=== PATIENT | male | born 1945 | race Caucasian/White ===

== ENCOUNTER 2021-08-04 08:40 | Outpatient (REF) | payer MEDICARE, SELFPAY ==
--- NOTE | ~2021-08-04 | XR_ITS ---
EXAMINATION: XR RIBS, LEFT CLINICAL INFORMATION: Left rib pain COMPARISON: None TECHNIQUE: 3 views of the left ribs were obtained. One view chest. FINDINGS: Chest: The lungs are well-expanded and clear of acute pneumonic process. There is platelike atelectasis in the lingula. Heart size and pulmonary vascularity is normal. Multiple views of left ribs reveal no visible fracture or lytic process. XR/XR ribs LT min 3V w CXR1V IMPRESSION: Lingular atelectasis. No visible fracture or bony abnormality.
== END 2021-08-04 08:41 | disposition home or self-care (01) ==
LOC: HO.HMGCX 08:40
PROVIDERS: PCP Physician Assistant; Visit Provider Internal Medicine
DX: S20.212A Contusion of left front wall of thorax, initial encounter (principal)
CPT/HCPCS: 71101

== ENCOUNTER 2023-05-21 07:57 | Outpatient (AMB) | payer MEDICARE, SELFPAY ==
[2023-05-21 08:21] VITALS: BP 112/68; PULSE 74; O2SAT 98; BMI 27.2
--- NOTE | 2023-05-21 08:21 | MHC.PC.OV ---
Vital Signs 05/21/23 08:21 Height 5 ft 11 in Weight 195 lb BMI 27.2 BP 112/68 Blood Pressure Location Lt brachial Position Sitting Pulse 74 Pulse Source Pulse Oximeter Pulse Oximetry (%) 98 Oxygen Delivery Method Room Air Intake Visit Reasons: Dizzy, CT scan abnormalities Allergies lisinopril Adverse Reaction (Mild, Verified 05/21/23 08:34) Cough Medication List - Last Reconciled 05/21/23 by Tom Collins PA-C aspirin 81 mg PO DAILY clopidogrel 75 mg PO DAILY dapagliflozin propanediol (Farxiga) 10 mg PO DAILY 90 days diclofenac sodium 3% 1 appl topical BID 30 days glipizide 5 mg PO BID levothyroxine 75 mcg PO QAM losartan 25 mg PO DAILY metformin 1,000 mg PO BID metoprolol succinate ER 25 mg PO DAILY rosuvastatin 40 mg PO DAILY sildenafil (Viagra) 100 mg PO DAILY 5 days sitagliptin phosphate (Januvia) 100 mg PO DAILY Tobacco use date assessed: 02/28/23 Fall risk assessment: No Falls in past year Last assessed Fall Risk: 05/21/23 Dental Screening Dental Screen Date: 05/21/23 Did you have a dental visit in the last 12 months?: Yes Did you have a dental problem in the last 6 months where you did not have access to dental care?: No Was dental information given to patient?: Patient has dentist HPI Dizzy, CT scan abnormalities HPI Details Rich is a 77 y/o M here today for a follow-up visit. ? Pmhx significant for DMII, HTN, HLD, hypothyroid, CAD, h/o DVT, nephrolithiasis.' Patient recently seen at [facility] ER for chest pain and dizziness. Patient found to elevated heart rate and low blood pressure. Labs did show elevated serum creatinine and troponins which were trended though did not elevate to concerning level. CTA chest negative for pulmonary embolism though in the abdomen showing mediastinal lymph nodes that were nonspecific Indeterminate 1 cm hypodense lesion in the right lobe of the liver. CHRONIC MEDICAL CONDITIONS--> ? .. ? HTN:? Blood pressure acceptable today in office.? He denies any syncopal episodes or falls recently . Deneis any headaches , CP , SOB. ? . ? CAD:Is followed by Dr. Gallegos whom he seen couple times per year.? Has had cardiac catheterization in 2015 showing moderate stenosis of the coronary arteries though no stent placement.? He otherwise denies any chest pain, dizziness, shortness of breath on exertion.? Most recent lipid panel showing appropriate LDL at 60 ? .. ? DMII: Does not check his sugars at home. denies any hypergycemic symptoms.? Today's A1C 8.5 from 10.2. .? Fasting blood sugar have been better since starting Farxiga .? AGAIN STRONGLY ADVISED THE ADDITION OF INJECTABLE INSULIN THERAPY THOUGH PATIENT ADAMANTLY REFUSES.? HE WILL WORK ON LIFESTYLE TO REDUCE HIS CARBOHYDRATES. He reports he also will not check blood sugars at home as he does not like needles ?. [facility] Medical History (Updated 05/21/23 @ 08:35 by Tom Collins PA-C) H/O deep venous thrombosis Vertigo Surgical History History of cervical spinal surgery Family History Father No problems noted. Mother Heart disease Social History Housing: House Alcohol intake: never Patient Tobacco Use Status: Never used Tobacco e-Cigarette/Vaping Use: Never Used Second Hand Smoke Exposure: No service: No Current occupational status: employed Current occupational exposures/hazards: No Cognitive needs: No Hearing needs: No Vision needs: Yes Questionnaire PHQ-9 Over the last 2 weeks, how often have you been bothered by any of the following problems? 1. Little interest or pleasure in doing things: not at all 2. Feeling down, depressed, or hopeless: not at all 3. Trouble falling or staying asleep, or sleeping too much: not at all 4. Feeling tired or having little energy: not at all 5. Poor appetite or overeating: not at all 6. Feeling bad about yourself - or that you are a failure or have let yourself or your family down: not at all 7. Trouble concentrating on things, such as reading the newspaper or watching television: not at all 8. Moving or speaking so slowly that other people could have noticed. Or the opposite - being so fidgety or restless that you have been moving around a lot more than usual: not at all 9. Thoughts that you would be better off or of hurting yourself in some way: not at all Total score: 0 Depression Screening Interpretation: Negative 52923 - PHQ-9 Billing: Yes Source: Developed by Drs. Martín Iglesias, Court Page, Valeriano Amado and colleagues, with an educational niesha from [employer]. Thrive Questionnaire Date Thrive assessed: 02/28/23 AUDIT C Alcohol Use Questionnaire (AUDIT-C) 1. How often do you have a drink containing alcohol?: Never Total Score: 0 ABDOUL-7 AMB Questionnaire ABDOUL-7 Date ABDOUL - 7 assessed: 02/28/23 Source: Developed by Drs. Martín Iglesias, Valeriano Dunn and colleagues, with an educational niesha from [employer]. Review of Systems Const Denies headache(s) Eyes Denies loss of vision ENT Denies vertigo, Denies dizziness, Denies headache(s) and Denies sore throat Card Denies chest pain, Denies leg edema and Denies lightheadedness Resp Denies cough, Denies hemoptysis and Denies wheezing GI Denies abdominal pain, Denies melena, Denies constipation, Denies diarrhea and Denies vomiting Denies dysuria, Denies urinary frequency and Denies urinary urgency Musc Denies arthralgias, Denies joint swelling, Denies numbness and Denies tingling Neuro Denies Abnormal speech present, Denies behavioral changes, Denies vertigo, Denies dizziness, Denies headache(s), Denies loss of vision, Denies memory loss, Denies numbness and Denies tingling Psych Denies anxiety, Denies behavioral changes, Denies depression, Denies memory loss and Denies panic attacks Mahesh/Lymph Denies easy bleeding and Denies easy bruising Aller/Immun Denies wheezing Physical exam (Primary Care) Vital Signs: Last Vital Signs Pulse 74 05/21/23 08:21 BP 112/68 05/21/23 08:21 Pulse Ox 98 05/21/23 08:21 Oxygen Delivery Method Room Air 05/21/23 08:21 BMI result Body Mass Index 27.2 Tobacco/Smoking Status: Tobacco use Status Tobacco use date assessed 02/28/23 05/21/23 08:22 Patient Tobacco Use Status Never used Tobacco 05/21/23 08:22 e-Cigarette/Vaping Use Never Used 05/21/23 08:22 PHQ-9: PHQ-9 Score PHQ-9: Total score 0 05/21/23 08:30 Depression Screening Interpretation: Negative Thrive Assessment: Date of Thrive Assessment Date Thrive assessed 02/28/23 05/21/23 08:22 Const General: healthy appearing, no acute distress, alert and awake Nutritional Appearance: well nourished Orientation/consciousness: oriented to person, oriented to place and oriented to time HENMT Ears: TM's normal bilaterally General nose exam: Normal nasal mucous membranes and turbinates present Eyes Conjunctivae: conjunctivae normal Sclerae: sclerae normal Pupils: Equal, round and reactive pupils present Neck Neck: Yes no lymphadenopathy and Yes no JVD Thyroid: Thyroid normal Carotids: no bruits Resp Effort & Inspection: normal respiratory effort and not tachypneic Auscultation: no crackles, no rales, no rhonchi and no wheezes Cardio Rate: regular rate Rhythm: regular rhythm Heart sounds: no murmurs and normal S1 and S2 GI Palpation (GI): Soft to palpation, nontender, no hepatomegaly and no splenomegaly Auscultation: normal bowel sounds Skin General skin exam: no rashes or lesions noted and dry skin Neuro General: oriented to person, oriented to place and oriented to time Cranial nerves: Yes Equal, round and reactive pupils present Speech: No Abnormal speech present Gait exam (Neuro): Normal gait present Motor exam (neuro): no tremor noted Extrem Right upper extremity: full ROM Left upper extremity: full ROM Right lower extremity: full ROM; no edema Left lower extremity: full ROM; no edema Psych Mental Status: mental status grossly normal Speech and movement: Normal speech and movement present Affect: normal affect Attitude: cooperative Thought process: Normal thought process present Results AMB Hemoglobin A1c AMB Hemoglobin A1c 8.5 % Last Edit by Preet Moss CMA on 05/21/23 08:44 Results Reviewed Results Reviewed: Laboratory Last Values Hgb A1c (Clinic) 8.5 % (4.0-6.0) H 05/21/23 08:22 Assessment and Plan Assessment & Plan (1) Liver lesion: Code(s): K76.9 - Liver disease, unspecified Plan: Noted incidental 1 cm liver lesion on CTA chest. We discussed further imaging the patient like to hold off on this for now. Considered ultrasound though again decline. (2) DMII (diabetes mellitus, type 2): Code(s): E11.9 - Type 2 diabetes mellitus without complications Qualifiers: Diabetes mellitus complication status: without complication Diabetes mellitus school clerk insulin use: without school clerk use Qualified Code(s): E11.9 - Type 2 diabetes mellitus without complications Plan: Type 2 diabetes suboptimally controlled today's A1c at 8.5. Patient again declines starting insulin therapy. Continues on p.o. Jardiance and Januvia Orders: Orders AMB Hemoglobin A1c 05/21/23 Z13.9 - Encounter for screening, unspecified Coding Level of Care Code Est Pt Level 3 (93630) Diagnoses Liver lesion K76.9 DMII (diabetes mellitus, type 2) E11.9 Diabetes mellitus complication status: without complication Diabetes mellitus half-way insulin use: without half-way use
== END 2023-05-21 08:59 | disposition home or self-care (01) ==
PROVIDERS: PCP Physician Assistant; Visit Provider Physician Assistant
DX: E11.9 Type 2 diabetes mellitus without complications (principal)
CPT/HCPCS: 83036; 99213

== ENCOUNTER 2023-09-12 08:57 | Outpatient (AMB) | payer MEDICARE, SELFPAY ==
[2023-09-12 09:49] VITALS: BP 102/60; PULSE 75; O2SAT 95; BMI 26.5
--- NOTE | 2023-09-12 09:49 | MHC.PC.OV ---
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 Accompanied by: Spouse Allergies lisinopril Adverse Reaction (Mild, Verified 09/12/23 10:06) Cough Medication List - Last Reconciled 09/12/23 by Tom Collins PA-C aspirin 81 mg PO DAILY clopidogrel 75 mg PO DAILY dapagliflozin propanediol (Farxiga) 10 mg PO DAILY 90 days diclofenac sodium 3% 1 appl topical BID 30 days glipizide 5 mg PO BID levothyroxine 75 mcg PO QAM losartan 25 mg PO DAILY metformin 1,000 mg PO BID metoprolol succinate ER 25 mg PO DAILY miscellaneous medical supply 1 ea miscellaneous DAILY 99 days rosuvastatin 40 mg PO DAILY sildenafil (Viagra) 100 mg PO DAILY 5 days sitagliptin phosphate (Januvia) 100 mg PO DAILY Tobacco use date assessed: 02/28/23 Fall risk assessment: No Falls in past year Last assessed Fall Risk: 09/12/23 Dental Screening Dental Screen Date: 09/12/23 Did you have a dental visit in the last 12 months?: No Did you have a dental problem in the last 6 months where you did not have access to dental care?: No Was dental information given to patient?: Patient has dentist HPI f/u DMII/ CAD / HTN HPI Details Rich is a 77 y/o M here today for a follow-up visit. ? Pmhx significant for DMII, HTN, HLD, hypothyroid, CAD, h/o DVT, nephrolithiasis.' CHRONIC MEDICAL CONDITIONS--> ? .. ? HTN:? Blood pressure acceptable today in office.? He denies any syncopal episodes or falls recently . Deneis any headaches , CP , SOB. ? . ? CAD:Is followed by Dr. Gallegos whom he seen couple times per year.? Has had cardiac catheterization in 2014 showing moderate stenosis of the coronary arteries though no stent placement.? He otherwise denies any chest pain, dizziness, shortness of breath on exertion.? Most recent lipid panel showing appropriate LDL at 60. Has upcoming order for an echocardiogram to be done in November2023 ? .. ? DMII: Does not check his sugars at home. denies any hypergycemic symptoms.? Most recent A1c at 8.6. Has been losing weight to which he attributes to his poor eating habits. .? Fasting blood sugar have been better since starting Farxiga .? AGAIN STRONGLY ADVISED THE ADDITION OF INJECTABLE INSULIN THERAPY THOUGH PATIENT ADAMANTLY REFUSES.? HE WILL WORK ON LIFESTYLE TO REDUCE HIS CARBOHYDRATES. He reports he also will not check blood sugars at home as he does not like needles ?. Liver lesion: Was found to have an Indeterminate 1 cm hypodense lesion in the right lobe of the liver- CT or MRI with and without contrast was recommended. UNFORTUNATELY PATIENT DECLINES FURTHER IMAGING [facility] Medical History Vertigo H/O deep venous thrombosis Surgical History History of cervical spinal surgery Family History Father No problems noted. Mother Heart disease Social History Housing: House Alcohol intake: never Patient Tobacco Use Status: Never used Tobacco e-Cigarette/Vaping Use: Never Used Second Hand Smoke Exposure: No service: No Current occupational status: employed Current occupational exposures/hazards: No Cognitive needs: No Hearing needs: No Vision needs: Yes Questionnaire Thrive Questionnaire Date Thrive assessed: 02/28/23 ABDOUL-7 AMB Questionnaire ABDOUL-7 Date ABDOUL - 7 assessed: 02/28/23 Source: Developed by Drs. Martín Iglesias, Court Page, Valeriano Amado and colleagues, with an educational niesha from [employer]. Review of Systems Const Denies headache(s) Eyes Denies loss of vision ENT Denies vertigo, Denies dizziness, Denies headache(s) and Denies sore throat Card Denies chest pain, Denies leg edema and Denies lightheadedness Resp Denies cough, Denies hemoptysis and Denies wheezing GI Denies abdominal pain, Denies melena, Denies constipation, Denies diarrhea and Denies vomiting Denies dysuria, Denies urinary frequency and Denies urinary urgency Musc Denies arthralgias, Denies joint swelling, Denies numbness and Denies tingling Neuro Denies Abnormal speech present, Denies behavioral changes, Denies vertigo, Denies dizziness, Denies headache(s), Denies loss of vision, Denies memory loss, Denies numbness and Denies tingling Psych Denies anxiety, Denies behavioral changes, Denies depression, Denies memory loss and Denies panic attacks Mahesh/Lymph Denies easy bleeding and Denies easy bruising Aller/Immun Denies wheezing Physical exam (Primary Care) Vital Signs: Last Vital Signs Pulse 75 09/12/23 09:49 BP 102/60 09/12/23 09:49 Pulse Ox 95 09/12/23 09:49 Oxygen Delivery Method Room Air 09/12/23 09:49 BMI result Body Mass Index 26.5 Tobacco/Smoking Status: Tobacco use Status Tobacco use date assessed 02/28/23 09/12/23 09:49 Patient Tobacco Use Status Never used Tobacco 09/12/23 09:49 e-Cigarette/Vaping Use Never Used 09/12/23 09:49 Thrive Assessment: Date of Thrive Assessment Date Thrive assessed 02/28/23 09/12/23 09:49 Const General: healthy appearing, no acute distress, alert and awake Nutritional Appearance: well nourished Orientation/consciousness: oriented to person, oriented to place and oriented to time HENMT Ears: TM's normal bilaterally General nose exam: Normal nasal mucous membranes and turbinates present Eyes Conjunctivae: conjunctivae normal Sclerae: sclerae normal Pupils: Equal, round and reactive pupils present Neck Neck: Yes no lymphadenopathy and Yes no JVD Thyroid: Thyroid normal Carotids: no bruits Resp Effort & Inspection: normal respiratory effort and not tachypneic Auscultation: no crackles, no rales, no rhonchi and no wheezes Cardio Rate: regular rate Rhythm: regular rhythm Heart sounds: no murmurs and normal S1 and S2 GI Palpation (GI): Soft to palpation, nontender, no hepatomegaly and no splenomegaly Auscultation: normal bowel sounds Skin General skin exam: no rashes or lesions noted and dry skin Neuro General: oriented to person, oriented to place and oriented to time Cranial nerves: Yes Equal, round and reactive pupils present Speech: No Abnormal speech present Gait exam (Neuro): Normal gait present Motor exam (neuro): no tremor noted Extrem Right upper extremity: full ROM Left upper extremity: full ROM Right lower extremity: full ROM; no edema Left lower extremity: full ROM; no edema Psych Mental Status: mental status grossly normal Speech and movement: Normal speech and movement present Affect: normal affect Attitude: cooperative Thought process: Normal thought process present Assessment and Plan Assessment & Plan (1) CAD (coronary artery disease): Comment: Had coronary catheterization showing 80% blockage of the LAD no intervention at the time Code(s): I25.10 - Atherosclerotic heart disease of [place] coronary artery without angina pectoris Qualifiers: Associated angina: without angina Coronary Disease-Associated Artery/Lesion type: [place] artery [place] vs. 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 Most recent lipid panel showing appropriate LDL at 60. He otherwise denies any chest discomfort, shortness of breath on exertion or dizziness. (2) DMII (diabetes mellitus, type 2): Code(s): E11.9 - Type 2 diabetes mellitus without complications Qualifiers: Diabetes mellitus complication status: without complication Diabetes mellitus helicopter crew chief insulin use: without helicopter crew chief use Qualified Code(s): E11.9 - Type 2 diabetes mellitus without complications Plan: Patient type 2 diabetes suboptimally controlled. Most recent A1c AT 8.6. AGAIN ADVISED ON STARTING INSULIN AND OR NEW WERE ONCE A WEEK INJECTABLE THERAPIES FOR DIABETES THE PATIENT IS NOT A FOUND OF NEEDLES. Currently on maximal dose of metformin and Januvia. Will work on diabetic diet Goal A1c to be below 7.0 (3) HTN (hypertension): Code(s): I10 - Essential (primary) hypertension Qualifiers: Hypertension type: essential hypertension Qualified Code(s): I10 - Essential (primary) hypertension Plan: Patient's blood pressure has been well maintained with current antihypertensive medication.. Goal blood pressure be below 140/90 (4) Hypothyroidism: Code(s): E03.9 - Hypothyroidism, unspecified Qualifiers: Hypothyroidism type: unspecified Qualified Code(s): E03.9 - Hypothyroidism, unspecified Plan: Patient's most recent TSH stable. Has been chemically and clinically euthyroid. Will continue TSH monitoring Will continue levothyroxine 75 mcg (5) Liver lesion: Code(s): K76.9 - Liver disease, unspecified Plan: AGAIN NOTED TO HAVE A 1 CM HYPODENSE LESION ON THE RIGHT LOBE OF LIVER. OFFERED ADDITIONAL IMAGING OF THE LIVER THOUGH PATIENT DECLINES. - OF NOTE HAS BEEN LOSING WEIGHT Orders: Orders Comprehensive [place]. Panel Fast Today E11.9 - Type 2 diabetes mellitus without complications Microalbumin, Random (w Creat) Today I10 - Essential (primary) hypertension Complete Blood Count no Diff Today I10 - Essential (primary) hypertension Lipid Panel Today I25.10 - Atherosclerotic heart disease of [place] coronary artery without angina pectoris TSH reflex Free T4 Today E03.9 - Hypothyroidism, unspecified Medications: Refilled miscellaneous medical supply 1 ea miscellaneous DAILY 99 days 2 ea 0RF E11.9 - Type 2 diabetes mellitus without complications Coding Level of Care Code Est Pt Level 4 (33841) Diagnoses Coronary artery disease involving [place] coronary artery of [place] heart without angina pectoris I25.10 Associated angina: without angina Coronary Disease-Associated Artery/Lesion type: [place] artery [place] vs. transplanted heart: [place] heart Type 2 diabetes mellitus without complication, without long-term current use of insulin E11.9 Diabetes mellitus complication status: without complication Diabetes mellitus helicopter crew chief insulin use: without custodial use Essential hypertension I10 Hypertension type: essential hypertension Hypothyroidism, unspecified type E03.9 Hypothyroidism type: unspecified Liver lesion K76.9
== END 2023-09-12 10:26 | disposition home or self-care (01) ==
PROVIDERS: PCP Physician Assistant; Visit Provider Physician Assistant
DX: I25.10 Atherosclerotic heart disease of native coronary artery without angina pectoris (principal); E11.9 Type 2 diabetes mellitus without complications; I10 Essential (primary) hypertension; E03.9 Hypothyroidism, unspecified; K76.9 Liver disease, unspecified
CPT/HCPCS: 99214

== ENCOUNTER 2023-10-15 14:39 | Outpatient (AMB) | payer MEDICARE, SELFPAY ==
[2023-10-15 15:28] VITALS: BP 148/68; PULSE 72; O2SAT 97; BMI 26.4
--- NOTE | 2023-10-15 15:28 | MHC.PC.OV ---
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 Accompanied by: Spouse Allergies lisinopril Adverse Reaction (Mild, Verified 10/15/23 15:44) Cough Medication List - Last Reconciled 10/15/23 by Tom Collins PA-C amlodipine 5 mg PO DAILY aspirin 81 mg PO DAILY clopidogrel 75 mg PO DAILY diclofenac sodium 3% 1 appl topical BID 30 days glipizide 2.5 mg PO ONCE levothyroxine 75 mcg PO QAM losartan 25 mg PO DAILY metoprolol succinate ER 25 mg PO DAILY miscellaneous medical supply 1 ea miscellaneous DAILY 99 days rosuvastatin 40 mg PO DAILY sevelamer carbonate 1,600 mg PO TID sildenafil (Viagra) 100 mg PO DAILY 5 days sitagliptin phosphate (Januvia) 25 mg PO DAILY sitagliptin phosphate (Januvia) 25 mg PO DAILY sodium zirconium cyclosilicate (Lokelma) 10 grams PO DAILY Tobacco use date assessed: 10/15/23 Fall risk assessment: No Falls in past year Last assessed Fall Risk: 10/15/23 Dental Screening Dental Screen Date: 10/15/23 Did you have a dental visit in the last 12 months?: Yes Did you have a dental problem in the last 6 months where you did not have access to dental care?: No Was dental information given to patient?: Patient has dentist HPI [facility] [place] 09/24-10/05 gallbladder surgery HPI Details Rich is a 77 y/o M here today for a follow-up visit. ? Pmhx significant for DMII, HTN, HLD, hypothyroid, CAD, h/o DVT, nephrolithiasis.' Recently seen at [facility] for acute cholecystitis and underwent a laparoscopic cholecystectomy. His clinical course complicated by acute kidney injury with a creatinine at 10. His metformin was discontinued. Amlodipine was started for blood pressure. Renal biopsies were recommended though patient declined. Patient refused for further follow-up and hospital and wanted to be checked as outpatient for his kidney function. He is now followed by Dr. Baez (nephrology) every few days trending his electrolytes and renal function. Recommendations have been made for short-term dialysis though patient again declines. CHRONIC MEDICAL CONDITIONS--> ? .. ? HTN:? Blood pressure today in office elevated.? He denies any syncopal episodes or falls recently . Deneis any headaches , CP , SOB. ? . ? CAD:Is followed by Dr. Gallegos whom he seen couple times per year.? Has had cardiac catheterization in 2014 showing moderate stenosis of the coronary arteries though no stent placement.? He otherwise denies any chest pain, dizziness, shortness of breath on exertion.? Most recent lipid panel showing appropriate LDL at 60. Has upcoming order for an echocardiogram to be done in November2023 ? .. ? DMII: Does not check his sugars at home. denies any hypergycemic symptoms.? Most recent A1c at 8.6. Has been losing weight to which he attributes to his poor eating habits. .? Fasting blood sugar have been better since starting Farxiga .? AGAIN STRONGLY ADVISED THE ADDITION OF INJECTABLE INSULIN THERAPY THOUGH PATIENT ADAMANTLY REFUSES.? HE WILL WORK ON LIFESTYLE TO REDUCE HIS CARBOHYDRATES. He reports he also will not check blood sugars at home as he does not like needles ?. [facility] Medical History Vertigo H/O deep venous thrombosis Surgical History History of cervical spinal surgery Family History Father No problems noted. Mother Heart disease Social History Housing: House Alcohol intake: never Patient Tobacco Use Status: Never used Tobacco e-Cigarette/Vaping Use: Never Used Second Hand Smoke Exposure: No service: No Current occupational status: employed Current occupational exposures/hazards: No Cognitive needs: No Hearing needs: No Vision needs: Yes Questionnaire PHQ-9 Over the last 2 weeks, how often have you been bothered by any of the following problems? 68884 - PHQ-9 Billing: Patient declined-do not bill Source: Developed by Drs. Martín Court Valladares Kurt Kroenke and colleagues, with an educational niesha from [employer]. Thrive Questionnaire Date Thrive assessed: 10/15/23 I am a: Patient What is your living situation today?: I have a steady place to live Within the past 12 months, did the food you bought not last and you didn't have the money to get more?: Never true Within the past 12 months, did you worry whether your food would run out before you got money to buy more?: Never true Do you have trouble paying for medicines?: No Do you have trouble getting transportation to medical appointments?: No Do you have trouble paying your heating and electricity bill?: No Do you have trouble taking care of your child, family member or friend?: No Do you have trouble with day-to-day activities such as bathing, preparing meals, shopping, managing finances, etc.?: No Are you currently unemployed and looking for a job?: No Are you interested in more education?: No Please select the resources that you would like help with: None Currently or been in a relationship where the following occur: no concerns reported AUDIT C Alcohol Use Questionnaire (AUDIT-C) 1. How often do you have a drink containing alcohol?: Never 3. How often do you have six or more drinks on one occasion?: Never Total Score: 0 ABDOUL-7 AMB Questionnaire ABDOUL-7 Date ABDOUL - 7 assessed: 02/28/23 Source: Developed by Drs. Martín Iglesias, Valeriano Dunn and colleagues, with an educational niesha from [employer]. ABDOUL-7 Assessment Billing ABDOUL-7 Assessment Tool: pt declined-do not bill Review of Systems Const Denies headache(s) Eyes Denies loss of vision ENT Denies vertigo, Denies dizziness, Denies headache(s) and Denies sore throat Card Denies chest pain, Denies leg edema and Denies lightheadedness Resp Denies cough, Denies hemoptysis and Denies wheezing GI Denies abdominal pain, Denies melena, Denies constipation, Denies diarrhea and Denies vomiting Denies dysuria, Denies urinary frequency and Denies urinary urgency Musc Denies arthralgias, Denies joint swelling, Denies numbness and Denies tingling Neuro Denies Abnormal speech present, Denies behavioral changes, Denies vertigo, Denies dizziness, Denies headache(s), Denies loss of vision, Denies memory loss, Denies numbness and Denies tingling Psych Denies anxiety, Denies behavioral changes, Denies depression, Denies memory loss and Denies panic attacks Mahesh/Lymph Denies easy bleeding and Denies easy bruising Aller/Immun Denies wheezing Physical exam (Primary Care) Vital Signs: Last Vital Signs Pulse 72 10/15/23 15:28 BP 148/68 H 10/15/23 15:28 Pulse Ox 97 10/15/23 15:28 Oxygen Delivery Method Room Air 10/15/23 15:28 BMI result Body Mass Index 26.4 Tobacco/Smoking Status: Tobacco use Status Tobacco use date assessed 10/15/23 10/15/23 15:38 Patient Tobacco Use Status Never used Tobacco 10/15/23 15:28 e-Cigarette/Vaping Use Never Used 10/15/23 15:28 Thrive Assessment: Date of Thrive Assessment Date Thrive assessed 10/15/23 10/15/23 15:42 Currently or been in a relationship where the following occur: no concerns reported Const General: healthy appearing, no acute distress, alert and awake Nutritional Appearance: well nourished Orientation/consciousness: oriented to person, oriented to place and oriented to time HENMT Ears: TM's normal bilaterally General nose exam: Normal nasal mucous membranes and turbinates present Eyes Conjunctivae: conjunctivae normal Sclerae: sclerae normal Pupils: Equal, round and reactive pupils present Neck Neck: Yes no lymphadenopathy and Yes no JVD Thyroid: Thyroid normal Carotids: no bruits Resp Effort & Inspection: normal respiratory effort and not tachypneic Auscultation: no crackles, no rales, no rhonchi and no wheezes Cardio Rate: regular rate Rhythm: regular rhythm Heart sounds: no murmurs and normal S1 and S2 GI Palpation (GI): Soft to palpation, nontender, no hepatomegaly and no splenomegaly Auscultation: normal bowel sounds Skin Other: RASH NOTED OVER ENTIRE BACK. General skin exam: dry skin Neuro General: oriented to person, oriented to place and oriented to time Cranial nerves: Yes Equal, round and reactive pupils present Speech: No Abnormal speech present Gait exam (Neuro): Normal gait present Motor exam (neuro): no tremor noted Extrem Right upper extremity: full ROM Left upper extremity: full ROM Right lower extremity: full ROM; no edema Left lower extremity: full ROM; no edema Psych Mental Status: mental status grossly normal Speech and movement: Normal speech and movement present Affect: normal affect Attitude: cooperative Thought process: Normal thought process present Assessment and Plan Assessment & Plan (1) SEBASTIÁN (acute kidney injury): Code(s): N17.9 - Acute kidney failure, unspecified Plan: Recent hospitalization for acute cholecystitis and now status post cholecystectomy. Was found to have an acute kidney injury with creatinine up to 10.. Patient now followed by Nephrology and is closely monitored as outpatient. He has developed a generalized itch ? Due to renal disease verses allergic reaction to new medication. Will supply with low-dose hydroxyzine 10 mg (2) S/P cholecystectomy: Code(s): Z90.49 - Acquired absence of other specified parts of digestive tract Plan: Doing well from a surgical., Surgical scars were well healed. (3) DMII (diabetes mellitus, type 2): Code(s): E11.9 - Type 2 diabetes mellitus without complications Qualifiers: Diabetes mellitus complication status: without complication Diabetes mellitus watermaster insulin use: without snf use Qualified Code(s): E11.9 - Type 2 diabetes mellitus without complications Plan: Patient's diabetes has been suboptimally controlled. He continues to decline offer start insulin. Was on insulin while in the hospital. Metformin has been discontinued due to his renal issues. Now on glipizide, Jardiance (4) HTN (hypertension): Code(s): I10 - Essential (primary) hypertension Qualifiers: Hypertension type: essential hypertension Qualified Code(s): I10 - Essential (primary) hypertension Plan: Patient's blood pressure slightly elevated today in office. Will increase his dose of amlodipine to 10 mg for better blood pressure control. Advised to continue monitoring blood pressure at home with goal blood pressure to be below 140/90 Medications: New hydroxyzine HCl 10 mg PO TID 15 days 45 tabs 0RF L29.9 - Pruritus, unspecified sodium zirconium cyclosilicate (Lokelma) 10 grams PO DAILY 30 days 30 ea 0RF N17.9 - Acute kidney failure, unspecified triamcinolone acetonide 0.1% 1 appl topical DAILY 14 days 454 grams 1RF L29.9 - Pruritus, unspecified amlodipine 10 mg PO DAILY 30 days 30 tabs 1RF I10 - Essential (primary) hypertension sitagliptin phosphate (Januvia) 25 mg PO DAILY 30 days 30 tabs 3RF E11.9 - Type 2 diabetes mellitus without complications Changed From glipizide 5 mg PO BID 180 tabs 1RF E11.9 - Type 2 diabetes mellitus without complications To glipizide 2.5 mg PO ONCE E11.9 - Type 2 diabetes mellitus without complications Coding Level of Care Code Est Pt Level 4 (01830) Diagnoses SEBASTIÁN (acute kidney injury) N17.9 S/P cholecystectomy Z90.49 Type 2 diabetes mellitus without complication, without long-term current use of insulin E11.9 Diabetes mellitus complication status: without complication Diabetes mellitus snf insulin use: without snf use Essential hypertension I10 Hypertension type: essential hypertension
== END 2023-10-15 16:07 | disposition home or self-care (01) ==
PROVIDERS: PCP Physician Assistant; Visit Provider Physician Assistant
DX: N17.9 Acute kidney failure, unspecified (principal); Z90.49 Acquired absence of other specified parts of digestive tract; E11.9 Type 2 diabetes mellitus without complications; I10 Essential (primary) hypertension
CPT/HCPCS: 99214

== ENCOUNTER 2023-11-13 08:42 | Outpatient (AMB) | payer MEDICARE, SELFPAY ==
[2023-11-13 09:10] VITALS: BP 128/68; PULSE 76; O2SAT 98; BMI 24.6
--- NOTE | 2023-11-13 09:10 | A.OFFPC_ITS ---
Vital Signs 11/13/23 09:10 Height 5 ft 11 in Weight 176 lb 4 oz BMI 24.6 BP 128/68 Blood Pressure Location Lt brachial Position Sitting Pulse 76 Pulse Source Pulse Oximeter Pulse Oximetry (%) 98 Oxygen Delivery Method Room Air Intake Visit Reasons: f/u SEBASTIÁN [employer] Required: No Accompanied by: Spouse Allergies lisinopril Adverse Reaction (Mild, Verified 11/13/23 09:21) Cough Medication List - Last Reconciled 11/13/23 by Tom Collins PA-C amlodipine 10 mg PO DAILY 30 days aspirin 81 mg PO DAILY clopidogrel 75 mg PO DAILY diclofenac sodium 3% 1 appl topical BID 30 days glipizide 2.5 mg PO ONCE hydroxyzine HCl 10 mg PO TID 15 days levothyroxine 75 mcg PO QAM losartan 25 mg PO DAILY metoprolol succinate ER 25 mg PO DAILY miscellaneous medical supply 1 ea miscellaneous DAILY 99 days rosuvastatin 40 mg PO DAILY sevelamer carbonate 1,600 mg PO TID sildenafil (Viagra) 100 mg PO DAILY 5 days sitagliptin phosphate (Januvia) 25 mg PO DAILY 30 days sodium zirconium cyclosilicate (Lokelma) 10 grams PO DAILY 30 days triamcinolone acetonide 0.1% 1 appl topical DAILY 14 days Tobacco use date assessed: 10/15/23 Dental Screening Dental Screen Date: 11/13/23 Did you have a dental visit in the last 12 months?: No Did you have a dental problem in the last 6 months where you did not have access to dental care?: No Was dental information given to patient?: Patient has dentist HPI f/u SEBASTIÁN HPI Details Rich is a 77 y/o M here today for a follow-up visit. ? Pmhx significant for DMII, HTN, HLD, hypothyroid, CAD, h/o DVT, nephrolithiasis.' Recently seen at [facility] for acute cholecystitis and underwent a laparoscopic cholecystectomy. His clinical course complicated by acute kidney injury with a creatinine at 10. His metformin was discontinued. Amlodipine was started for blood pressure. Renal biopsies were recommended though patient declined. Patient refused for further follow-up and hospital and wanted to be checked as outpatient for his kidney function. He is now followed by Dr. Baez (nephrology) every few days trending his electrolytes and renal function. Recommendations have been made for short-term dialysis though patient again declines. Has since his hospital admission been having intermittent dizziness, low appetite in somewhat fatigued. Unclear etiology to this though may be due to his renal disease and uncontrolled diabetes. Has lost significant amount of weight over the last 2 months. Does appear to have some muscle wasting in his extremities. Has labs at [facility] and report creatinine is now down to 3.9. Has close follow-up with Nephrology. CHRONIC MEDICAL CONDITIONS--> ? .. ? HTN:? Blood pressure today in office elevated.? He denies any syncopal episodes or falls recently . Deneis any headaches , CP , SOB. ? . ? CAD:Is followed by Dr. Gallegos whom he seen couple times per year.? Has had cardiac catheterization in 2015 showing moderate stenosis of the coronary arteries though no stent placement.? He otherwise denies any chest pain, dizziness, shortness of breath on exertion.? Most recent lipid panel showing appropriate LDL at 60. Did have an echocardiogram done at [facility] though did not have results of this. ? .. ? DMII: Does not check his sugars at home. denies any hypergycemic symptoms.? Today's A1c at 8.3. Has been losing weight to which he attributes to his poor eating habits. . .? AGAIN STRONGLY ADVISED THE ADDITION OF INJECTABLE INSULIN THERAPY THOUGH PATIENT ADAMANTLY REFUSES.? HE WILL WORK ON LIFESTYLE TO REDUCE HIS CARBOHYDRATES. He reports he also will not check blood sugars at home as he does not like needles ? PLAN: Will restart Farxiga 10 mg, continue glipizide 2.5 mg and Jardiance 25 mg. [facility] Medical History Vertigo H/O deep venous thrombosis Surgical History History of cervical spinal surgery Family History Father No problems noted. Mother Heart disease Social History Housing: House Alcohol intake: never Patient Tobacco Use Status: Never used Tobacco e-Cigarette/Vaping Use: Never Used Second Hand Smoke Exposure: No service: No Current occupational status: employed Current occupational exposures/hazards: No Cognitive needs: No Hearing needs: No Vision needs: Yes Questionnaire PHQ-9 Over the last 2 weeks, how often have you been bothered by any of the following problems? 1. Little interest or pleasure in doing things: several days 2. Feeling down, depressed, or hopeless: more than half the days 3. Trouble falling or staying asleep, or sleeping too much: nearly every day 4. Feeling tired or having little energy: nearly every day 5. Poor appetite or overeating: more than half the days 6. Feeling bad about yourself - or that you are a failure or have let yourself or your family down: more than half the days 7. Trouble concentrating on things, such as reading the newspaper or watching television: more than half the days 8. Moving or speaking so slowly that other people could have noticed. Or the opposite - being so fidgety or restless that you have been moving around a lot more than usual: not at all 9. Thoughts that you would be better off or of hurting yourself in some way: not at all Total score: 15 Depression Screening Interpretation: Positive Depression Screening Follow-up: Existing condition and Declines treatment Depression Screening Done: Yes 99419 - PHQ-9 Billing: Yes Source: Developed by Drs. Martín Iglesias, Court Page, Valeriano Amado and colleagues, with an educational niesha from [employer]. Thrive Questionnaire Date Thrive assessed: 10/15/23 AUDIT C Alcohol Use Questionnaire (AUDIT-C) 1. How often do you have a drink containing alcohol?: Never 3. How often do you have six or more drinks on one occasion?: Never Total Score: 0 ABDOUL-7 AMB Questionnaire ABDOUL-7 Date ABDOUL - 7 assessed: 02/28/23 Feeling nervous, anxious, or on edge: 0 = Not at all Not being able to stop or control worryin = Not at all Worrying too much about different things: 0 = Not at all Trouble relaxin = Not at all Being so restless that it is hard to sit still: 0 = Not at all Becoming easily annoyed or irritable: 0 = Not at all Feeling afraid as if something awful might happen: 0 = Not at all Total ABDOUL-7 score (0-4 normal; 5-9 mild; 10-14 moderate; 15-21 severe): 0 Source: Developed by Drs. Martín Iglesias, Court Page, Valeriano Amado and colleagues, with an educational niesha from [employer]. ABDOUL-7 Assessment Billing ABDOUL-7 Assessment Tool: ABDOUL-7 Assessment 17110 Review of Systems Const Details: + weight loss Denies headache(s) Eyes Denies loss of vision ENT Denies vertigo, Reports dizziness, Denies headache(s) and Denies sore throat Card Denies chest pain, Denies leg edema and Reports lightheadedness Resp Denies cough, Denies hemoptysis and Denies wheezing GI Denies abdominal pain, Denies melena, Denies constipation, Denies diarrhea and Denies vomiting Denies dysuria, Denies urinary frequency and Denies urinary urgency Musc Denies arthralgias, Denies joint swelling, Denies numbness and Denies tingling Neuro Denies Abnormal speech present, Denies behavioral changes, Denies vertigo, Reports dizziness, Denies headache(s), Denies loss of vision, Denies memory loss, Denies numbness and Denies tingling Psych Denies anxiety, Denies behavioral changes, Denies depression, Denies memory loss and Denies panic attacks Mahesh/Lymph Denies easy bleeding and Denies easy bruising Aller/Immun Denies wheezing Physical exam (Primary Care) Vital Signs: Last Vital Signs Pulse 76 11/13/23 09:10 BP 128/68 11/13/23 09:10 Pulse Ox 98 11/13/23 09:10 Oxygen Delivery Method Room Air 11/13/23 09:10 BMI result Body Mass Index 24.6 Tobacco/Smoking Status: Tobacco use Status Tobacco use date assessed 10/15/23 11/13/23 09:10 Patient Tobacco Use Status Never used Tobacco 11/13/23 09:10 e-Cigarette/Vaping Use Never Used 11/13/23 09:10 PHQ-9: PHQ-9 Score PHQ-9: Total score 15 11/13/23 09:29 Depression Screening Interpretation: Positive Depression Screening Follow-up: Existing condition and Declines treatment Thrive Assessment: Date of Thrive Assessment Date Thrive assessed 10/15/23 11/13/23 09:10 Const General: healthy appearing, no acute distress, alert and awake Nutritional Appearance: well nourished Orientation/consciousness: oriented to person, oriented to place and oriented to time HENMT Ears: TM's normal bilaterally General nose exam: Normal nasal mucous membranes and turbinates present Eyes Conjunctivae: conjunctivae normal Sclerae: sclerae normal Pupils: Equal, round and reactive pupils present Neck Neck: Yes no lymphadenopathy and Yes no JVD Thyroid: Thyroid normal Carotids: no bruits Resp Effort & Inspection: normal respiratory effort and not tachypneic Auscultation: no crackles, no rales, no rhonchi and no wheezes Cardio Rate: regular rate Rhythm: regular rhythm Heart sounds: no murmurs and normal S1 and S2 GI Palpation (GI): Soft to palpation, nontender, no hepatomegaly and no splenom egaly Auscultation: normal bowel sounds Skin General skin exam: no rashes or lesions noted and dry skin Neuro General: oriented to person, oriented to place and oriented to time Cranial nerves: Yes Equal, round and reactive pupils present Speech: No Abnormal speech present Gait exam (Neuro): Normal gait present Motor exam (neuro): no tremor noted Extrem Right upper extremity: full ROM Left upper extremity: full ROM Right lower extremity: full ROM; no edema Left lower extremity: full ROM; no edema Psych Mental Status: mental status grossly normal Speech and movement: Normal speech and movement present Affect: normal affect Attitude: cooperative Thought process: Normal thought process present Results AMB Hemoglobin A1c AMB Hemoglobin A1c 8.4 % Last Edit by RAMOS Scherer on 11/13/23 09:29 Results Reviewed Results Reviewed: Laboratory Last Values Hgb A1c (Clinic) 8.4 % (4.0-6.0) H 11/13/23 09:11 Assessment and Plan Assessment & Plan (1) SEBASTIÁN (acute kidney injury): Code(s): N17.9 - Acute kidney failure, unspecified Plan: Recent hospitalization for acute cholecystitis and now status post cholecystectomy. Was found to have an acute kidney injury with creatinine up to 10.. Patient now followed by Nephrology and is closely monitored as outpatient. Did have repeat labs and creatinine down at 3.9. GFR at 15 (2) S/P cholecystectomy: Code(s): Z90.49 - Acquired absence of other specified parts of digestive tract Plan: Doing well from a surgical., did have an ERCP recently that removed his stones. (3) DMII (diabetes mellitus, type 2): Code(s): E11.9 - Type 2 diabetes mellitus without complications Qualifiers: Diabetes mellitus complication status: without complication Diabetes mellitus retirement insulin use: without retirement use Qualified Code(s): E11.9 - Type 2 diabetes mellitus without complications Plan: Patient's diabetes has been suboptimally controlled. Today's A1c at 8.4. Has been noticing weight loss, muscle weakness and intermittent dizziness most likely secondary to uncontrolled diabetes and his recent renal disease. Advised to stay well hydrated He continues to decline offer start insulin as I continued to report he will likely benefit him on controlling his diabetes. Was on insulin while in the hospital -CONTINUES TO REFUSE INSULIN. Metformin has been discontinued due to his renal issues. Will restart Januvia 25 mg and Farxiga 10 mg. Will continue glipizide 2.5 mg. Goal A1c is to be below 7.0 (4) HTN (hypertension): Code(s): I10 - Essential (primary) hypertension Qualifiers: Hypertension type: essential hypertension Qualified Code(s): I10 - Essential (primary) hypertension Plan: Patient's blood pressure stable today in office. Continues on amlodipine 10 mg. Advised to continue monitoring blood pressure at home with goal blood pressure to be below 140/90 Orders: Orders Complete Blood Count no Diff Today E11.9 - Type 2 diabetes mellitus without complications Phosphorus Today N17.9 - Acute kidney failure, unspecified AMB Hemoglobin A1c Today E11.9 - Type 2 diabetes mellitus without complications Basic Metabolic Panel Today E11.9 - Type 2 diabetes mellitus without complications Medications: New dapagliflozin propanediol (Farxiga) 10 mg PO DAILY 90 days 90 tabs 1RF E11.9 - Type 2 diabetes mellitus without complications glipizide 2.5 mg PO DAILY 90 days 90 tabs 1RF I10 - Essential (primary) hypertension Changed From amlodipine 10 mg PO DAILY 30 days 30 tabs 1RF I10 - Essential (primary) hypertension To amlodipine 10 mg PO DAILY 90 days 90 tabs 1RF I10 - Essential (primary) hy pertension Discontinued hydroxyzine HCl Discontinued Reason: Doctor's Order 10 mg PO TID 15 days 45 tabs 0RF L29.9 - Pruritus, unspecified Coding Level of Care Code Est Pt Level 4 (63611) Diagnoses SEBASTIÁN (acute kidney injury) N17.9 S/P cholecystectomy Z90.49 Type 2 diabetes mellitus without complication, without long-term current use of insulin E11.9 Diabetes mellitus complication status: without complication 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
== END 2023-11-13 09:59 | disposition home or self-care (01) ==
PROVIDERS: PCP Physician Assistant; Visit Provider Physician Assistant
DX: N17.9 Acute kidney failure, unspecified (principal); Z90.49 Acquired absence of other specified parts of digestive tract; E11.9 Type 2 diabetes mellitus without complications; I10 Essential (primary) hypertension
CPT/HCPCS: 83036; 99214

== ENCOUNTER 2023-11-25 13:30 | Outpatient (AMB) | payer MEDICARE, SELFPAY ==
--- NOTE | 2023-11-25 14:24 | MHC.OFFWIV ---
Intake Vital Signs 11/25/23 14:25 Height 5 ft 11 in Weight 175 lb 4 oz BMI 24.4 BP 104/62 Blood Pressure Location Lt brachial Position Sitting Pulse 76 Pulse Source Pulse Oximeter Pulse Oximetry (%) 99 Oxygen Delivery Method Room Air Intake Visit Reasons: EST/dizziness X3 weeks(lobby) Intake Note: Pt is here c/o dizziness for more than three weeks. Pt states he had dizzy spells since he had his gallbladder removed. Patient Tobacco Use Status: Never used Tobacco Allergies lisinopril Adverse Reaction (Mild, Verified 11/25/23 15:01) Cough Medication List - Last Reconciled 11/25/23 by Pedro Ellison MD amlodipine 10 mg PO DAILY 90 days aspirin 81 mg PO DAILY clopidogrel 75 mg PO DAILY dapagliflozin propanediol (Farxiga) 10 mg PO DAILY 90 days diclofenac sodium 3% 1 appl topical BID 30 days glipizide 2.5 mg PO DAILY 90 days levothyroxine 75 mcg PO QAM losartan 25 mg PO DAILY metoprolol succinate ER 25 mg PO DAILY miscellaneous medical supply 1 ea miscellaneous DAILY 99 days rosuvastatin 40 mg PO DAILY sevelamer carbonate 1,600 mg PO TID sildenafil (Viagra) 100 mg PO DAILY 5 days sitagliptin phosphate (Januvia) 25 mg PO DAILY 30 days triamcinolone acetonide 0.1% 1 appl topical DAILY 14 days HPI EST/dizziness X3 weeks(lobby) HPI Details 78-year-old male presents to the office for a sick visit. Patient is complaining of dizziness for the past few weeks. Symptoms are present every day with no specific aggravating or relieving factors. No history of fall. Patient is able to drive. He is able to do his activities of daily living. Patient had an admission to the hospital in September. He was diagnosed with sepsis and later the gallbladder was removed. He still has a stent near the gallbladder in place. He also suffered from kidney injury and his last creatinine is at 3.0. He is not on dialysis. Patient also has elevated blood sugars. His last A1c is greater than 8. Patient refuses to check his blood sugars at home. [facility] Medical History Vertigo H/O deep venous thrombosis Surgical History History of cervical spinal surgery Family History Father No problems noted. Mother Heart disease Social History Housing: House Alcohol intake: never Patient Tobacco Use Status: Never used Tobacco e-Cigarette/Vaping Use: Never Used Second Hand Smoke Exposure: No service: No Current occupational status: employed Current occupational exposures/hazards: No Cognitive needs: No Hearing needs: No Vision needs: Yes Physical Exam Vital Signs: Last Vital Signs Pulse 76 11/25/23 14:25 BP 104/62 11/25/23 14:25 Pulse Ox 99 11/25/23 14:25 Oxygen Delivery Method Room Air 11/25/23 14:25 BMI result Body Mass Index 24.4 Const General: cooperative and healthy appearing Nutritional Appearance: well nourished Orientation/consciousness: patient oriented x3 Limitations: no limitations HEENT Head: Yes normal to inspection Eyes General: appearance normal, both eyes and all related structures Neck Neck: Yes normal visual inspection Chest Chest palpation & inspection: normal palpation of entire chest wall Resp Effort & Inspection: normal respiratory effort Neuro Other: No resting tremors. Gait is normal. General: patient oriented x3 Results AMB Random Glucose (hemocue) AMB Random Glucose (hemocue) 261 mg/dL Last Edit by Preet Moss CMA on 11/25/23 15:09 Assessment & Plan Assessment & Plan (1) Dizziness: Code(s): R42 - Dizziness and giddiness Plan: Blood sugar done in the office today was 260 . EKG and records reviewed. The lab work from [facility] was reviewed. Causes of dizziness could be his elevated sugar, renal dysfunction or positional vertigo. Patient has lab work orders and he prefers to go to [facility] lab. Meclizine has been added to the regimen. If symptoms do not improve to follow-up here. 20 minutes was spent reviewing his lab work. Orders: Orders AMB Random Glucose (hemocue) Today Z13.9 - Encounter for screening, unspecified Coding Level of Care Code Est Pt Level 4 (67185) Diagnoses Dizziness R42
[2023-11-25 14:25] VITALS: BP 104/62; PULSE 76; O2SAT 99; BMI 24.4
== END 2023-11-25 15:14 | disposition home or self-care (01) ==
PROVIDERS: PCP Physician Assistant; Visit Provider Internal Medicine
DX: R42 Dizziness and giddiness (principal)
CPT/HCPCS: 82948; 99214

== ENCOUNTER 2023-12-26 08:35 | Outpatient (AMB) | payer MEDICARE, SELFPAY ==
[2023-12-26 08:44] VITALS: BP 110/70; PULSE 66; O2SAT 96; BMI 24.3
--- NOTE | 2023-12-26 08:44 | MHC.PC.OV ---
Vital Signs 12/26/23 08:44 Height 5 ft 11 in Weight 174 lb BMI 24.3 BP 110/70 Blood Pressure Location Lt brachial Position Sitting Pulse 66 Pulse Source Pulse Oximeter Pulse Oximetry (%) 96 Oxygen Delivery Method Room Air Intake Visit Reasons: 4 wk f/u Salt Manager Required: No Toll Test Worker: Not Required per policy Accompanied by: Self / Same As Patient Allergies lisinopril Adverse Reaction (Mild, Verified 12/26/23 09:18) Cough Medication List - Last Reconciled 12/26/23 by Tom Collins PA-C amlodipine 10 mg PO DAILY 90 days aspirin 81 mg PO DAILY clopidogrel 75 mg PO DAILY dapagliflozin propanediol (Farxiga) 10 mg PO DAILY 90 days glipizide 5 mg PO DAILY 30 days levothyroxine 75 mcg PO QAM losartan 25 mg PO DAILY metformin 500 mg PO BID 30 days metoprolol succinate ER 25 mg PO DAILY miscellaneous medical supply 1 ea miscellaneous DAILY 99 days rosuvastatin 40 mg PO DAILY sevelamer carbonate 1,600 mg PO TID sildenafil (Viagra) 100 mg PO DAILY 5 days sitagliptin phosphate (Januvia) 25 mg PO DAILY 30 days Tobacco use date assessed: 10/15/23 Fall risk assessment: No Falls in past year Last assessed Fall Risk: 12/26/23 Dental Screening Dental Screen Date: 12/26/23 Did you have a dental visit in the last 12 months?: Yes Did you have a dental problem in the last 6 months where you did not have access to dental care?: No Was dental information given to patient?: Patient has dentist HPI 4 wk f/u HPI Details Rich is a 78 y/o M here today for a follow-up visit. ? Pmhx significant for DMII, HTN, HLD, hypothyroid, CAD, h/o DVT, nephrolithiasis.' Diabetes: Still interested in starting insulin. Most recent A1c at 8.4. We have restarted metformin and Jardiance. He has been a bit less dizzy and less abdominal pain. .. Renal impairment: Most recent labs showing improved renal function ( 2.6 from 3.0) and stable electrolytes. Again has been feeling less dizzy and has been able to eat a bit better. CHRONIC MEDICAL CONDITIONS--> ? .. ? HTN:? Blood pressure today in office stable.? Losartan has been discontinued while in the hospital. He continues on amlodipine which has helped to manage his blood pressure better. He denies any syncopal episodes or falls recently . Deneis any headaches , CP , SOB. ? . ? CAD:Is followed by Dr. Gallegos whom he seen couple times per year.? Has had cardiac catheterization in 2015 showing moderate stenosis of the coronary arteries though no stent placement.? He otherwise denies any chest pain, dizziness, shortness of breath on exertion.? Most recent lipid panel showing appropriate LDL at 60. Did have an echocardiogram done at [facility] though did not have results of this. ? .. ? DMII: Does not check his sugars at home. denies any hypergycemic symptoms.? Today's A1c at 8.3. Has been losing weight to which he attributes to his poor eating habits. . .? AGAIN STRONGLY ADVISED THE ADDITION OF INJECTABLE INSULIN THERAPY THOUGH PATIENT ADAMANTLY REFUSES.? HE WILL WORK ON LIFESTYLE TO REDUCE HIS CARBOHYDRATES. He reports he also will not check blood sugars at home as he does not like needles ? PLAN: Will increase his Jardiance to 50 mg, will continue glipizide, metformin and Farxiga. [facility] Medical History Vertigo H/O deep venous thrombosis Surgical History History of cervical spinal surgery Family History Father No problems noted. Mother Heart disease Social History Housing: House Alcohol intake: never Patient Tobacco Use Status: Never used Tobacco e-Cigarette/Vaping Use: Never Used Second Hand Smoke Exposure: No service: No Current occupational status: employed Current occupational exposures/hazards: No Cognitive needs: No Hearing needs: No Vision needs: Yes (glasses) Questionnaire Thrive Questionnaire Date Thrive assessed: 10/15/23 ABDOUL-7 AMB Questionnaire ABDOUL-7 Date ABDOUL - 7 assessed: 02/28/23 Source: Developed by Drs. Martín Iglesias, Court Page, Valeriano Amado and colleagues, with an educational niesha from [employer]. Review of Systems Const Denies headache(s) Eyes Denies loss of vision ENT Denies vertigo, Denies dizziness, Denies headache(s) and Denies sore throat Card Denies chest pain, Denies leg edema and Denies lightheadedness Resp Denies cough, Denies hemoptysis and Denies wheezing GI Denies abdominal pain, Denies melena, Denies constipation, Denies diarrhea and Denies vomiting Denies dysuria, Denies urinary frequency and Denies urinary urgency Musc Denies arthralgias, Denies joint swelling, Denies numbness and Denies tingling Neuro Denies Abnormal speech present, Denies behavioral changes, Denies vertigo, Denies dizziness, Denies headache(s), Denies loss of vision, Denies memory loss, Denies numbness and Denies tingling Psych Denies anxiety, Denies behavioral changes, Denies depression, Denies memory loss and Denies panic attacks Mahesh/Lymph Denies easy bleeding and Denies easy bruising Aller/Immun Denies wheezing Physical exam (Primary Care) Vital Signs: Last Vital Signs Pulse 66 12/26/23 08:44 BP 110/70 12/26/23 08:44 Pulse Ox 96 12/26/23 08:44 Oxygen Delivery Method Room Air 12/26/23 08:44 BMI result Body Mass Index 24.3 Tobacco/Smoking Status: Tobacco use Status Tobacco use date assessed 10/15/23 12/26/23 08:45 Patient Tobacco Use Status Never used Tobacco 12/26/23 08:45 e-Cigarette/Vaping Use Never Used 12/26/23 08:45 Thrive Assessment: Date of Thrive Assessment Date Thrive assessed 10/15/23 12/26/23 08:45 Const General: healthy appearing, no acute distress, alert and awake Nutritional Appearance: well nourished Orientation/consciousness: oriented to person, oriented to place and oriented to time HENMT Ears: TM's normal bilaterally General nose exam: Normal nasal mucous membranes and turbinates present Eyes Conjunctivae: conjunctivae normal Sclerae: sclerae normal Pupils: Equal, round and reactive pupils present Neck Neck: Yes no lymphadenopathy and Yes no JVD Thyroid: Thyroid normal Carotids: no bruits Resp Effort & Inspection: normal respiratory effort and not tachypneic Auscultation: no crackles, no rales, no rhonchi and no wheezes Cardio Rate: regular rate Rhythm: regular rhythm Heart sounds: no murmurs and normal S1 and S2 GI Palpation (GI): Soft to palpation, nontender, no hepatomegaly and no splenomegaly Auscultation: normal bowel sounds Skin General skin exam: no rashes or lesions noted and dry skin Neuro General: oriented to person, oriented to place and oriented to time Cranial nerves: Yes Equal, round and reactive pupils present Speech: No Abnormal speech present Gait exam (Neuro): Normal gait present Motor exam (neuro): no tremor noted Extrem Right upper extremity: full ROM Left upper extremity: full ROM Right lower extremity: full ROM; no edema Left lower extremity: full ROM; no edema Psych Mental Status: mental status grossly normal Speech and movement: Normal speech and movement present Affect: normal affect Attitude: cooperative Thought process: Normal thought process present Assessment and Plan Assessment & Plan (1) DMII (diabetes mellitus, type 2): Code(s): E11.9 - Type 2 diabetes mellitus without complications Qualifiers: Diabetes mellitus complication status: without complication Diabetes mellitus chcf insulin use: without chcf use Qualified Code(s): E11.9 - Type 2 diabetes mellitus without complications Plan: Patient's diabetes has been suboptimally controlled. Most recent A1c at 8.4 Has been noticing weight loss, muscle weakness and intermittent dizziness most likely secondary to uncontrolled diabetes and his recent renal disease. Advised to stay well hydrated He continues to decline offer start insulin as I continued to report he will likely benefit him on controlling his diabetes. Was on insulin while in the hospital -CONTINUES TO REFUSE INSULIN. He has restarted metformin. Will increase his Januvia to 50 mg Will continue Farxiga 10. Will continue glipizide 2.5 mg. Goal A1c is to be below 7.0 (2) SEBASTIÁN (acute kidney injury): Code(s): N17.9 - Acute kidney failure, unspecified Plan: Recent hospitalization for acute cholecystitis and now status post cholecystectomy. Was found to have an acute kidney injury with creatinine up to 10.. Patient now followed by Nephrology and is closely monitored as outpatient. Did have repeat labs and creatinine down at 2.3. (3) HTN (hypertension): Code(s): I10 - Essential (primary) hypertension Qualifiers: Hypertension type: essential hypertension Qualified Code(s): I10 - Essential (primary) hypertension Plan: Patient's blood pressure stable today in office. Continues on amlodipine 10 mg. Losartan has visit discontinued in the setting of renal disease. Advised to continue monitoring blood pressure at home with goal blood pressure to be below 140/90 Orders: Orders Hemoglobin A1c Today E11.9 - Type 2 diabetes mellitus without complications Comprehensive Met. Panel Today I10 - Essential (primary) hypertension TSH reflex Free T4 Today E03.9 - Hypothyroidism, unspecified Prostate Specific Antigen Scr Today I10 - Essential (primary) hypertension, Z12.5 - Encounter for screening for malignant neoplasm of prostate Medications: New sitagliptin phosphate (Januvia) 50 mg PO DAILY 90 days 90 tabs 1RF E11.9 - Type 2 diabetes mellitus without complications Changed From metformin 500 mg PO BID 30 days 60 tabs 3RF E11.9 - Type 2 diabetes mellitus without complications To metformin 500 mg PO BID 90 days 180 tabs 1RF E11.9 - Type 2 diabetes mellitus without complications From glipizide 5 mg PO DAILY 30 days 30 tabs 1RF E11.9 - Type 2 diabetes mellitus without complications To glipizide 5 mg PO DAILY 90 days 90 tabs 1RF E11.9 - Type 2 diabetes mellitus without complications Refilled metoprolol succinate ER 25 mg PO DAILY 90 tabs 1RF E03.9 - Hypothyroidism, unspecified Discontinued losartan Discontinued Reason: Doctor's Order 25 mg PO DAILY 90 tabs 3RF sildenafil (Viagra) Discontinued Reason: Doctor's Order 100 mg PO DAILY 5 days 5 tabs 0RF sexual activity E11.9 - Type 2 diabetes mellitus without complications sitagliptin phosphate (Januvia) Discontinued Reason: Doctor's Order 25 mg PO DAILY 30 days 30 tabs 3RF E11.9 - Type 2 diabetes mellitus without complications Coding Level of Care Code Est Pt Level 4 (04332) Diagnoses Type 2 diabetes mellitus without complication, without long-term current use of insulin E11.9 Diabetes mellitus complication status: without complication Diabetes mellitus online user experience strategist insulin use: without chcf use SEBASTIÁN (acute kidney injury) N17.9 Essential hypertension I10 Hypertension type: essential hypertension
== END 2023-12-26 09:34 | disposition home or self-care (01) ==
PROVIDERS: PCP Physician Assistant; Visit Provider Physician Assistant
DX: E11.9 Type 2 diabetes mellitus without complications (principal); N17.9 Acute kidney failure, unspecified; I10 Essential (primary) hypertension
CPT/HCPCS: 99214

== ENCOUNTER 2024-04-13 10:33 | Outpatient (AMB) | payer MEDICARE, SELFPAY ==
[2024-04-13 11:01] VITALS: BP 94/60; PULSE 77; O2SAT 97; BMI 25.9
--- NOTE | 2024-04-13 11:01 | A.OFFPC_ITS ---
Vital Signs 04/13/24 11:01 Height 5 ft 11 in Weight 185 lb 6 oz BMI 25.9 BP 94/60 Blood Pressure Location Lt brachial Position Sitting Pulse 77 Pulse Source Pulse Oximeter Pulse Oximetry (%) 97 Oxygen Delivery Method Room Air Intake Visit Reasons: 6mth f/u Order Builder Loader Required: No Accompanied by: Spouse Allergies lisinopril Adverse Reaction (Mild, Verified 04/13/24 11:14) Cough Medication List - Last Reviewed 04/13/24 by RAMOS Scherer amlodipine 10 mg PO DAILY 90 days aspirin 81 mg PO DAILY clopidogrel 75 mg PO DAILY dapagliflozin propanediol (Farxiga) 10 mg PO DAILY 90 days glipizide 5 mg PO DAILY 90 days levothyroxine 75 mcg PO QAM metformin 500 mg PO BID 90 days metoprolol succinate ER 25 mg PO DAILY miscellaneous medical supply 1 ea miscellaneous DAILY 99 days rosuvastatin 40 mg PO DAILY sitagliptin phosphate (Januvia) 50 mg PO DAILY 90 days Tobacco use date assessed: 10/15/23 Dental Screening Dental Screen Date: 12/26/23 HPI 6mth f/u HPI Details Rich is a 78 y/o M here today for a follow-up visit. ? Pmhx significant for DMII, HTN, HLD, hypothyroid, CAD, h/o DVT, nephrolithiasis.' .. Renal impairment: Most recent labs showing improved renal function ( 2.6 from 3.0) and stable electrolytes. Again has been feeling less dizzy and has been able to eat a bit better. CHRONIC MEDICAL CONDITIONS--> ? .. ? HTN:? Blood pressure today in office stable slightly low, has been having some episodes dizziness. Blood pressure is reported as slightly low at home as well. Will decrease his dose of amlodipine to 5 mg. ? . ? CAD:Is followed by Dr. Gallegos whom he seen couple times per year.? Has had cardiac catheterization in 2014 showing moderate stenosis of the coronary arteries though no stent placement.? He otherwise denies any chest pain, dizziness, shortness of breath on exertion.? Most recent lipid panel showing appropriate LDL at 60. His Plavix has been discontinued. Did have an echocardiogram done at [facility] though did not have results of this. ? .. ? DMII: Does not check his sugars at home. denies any hypergycemic symptoms.? Today's A1c at 8.1 from 8.4. Has been losing weight to which he attributes to his poor eating habits. . .? AGAIN STRONGLY ADVISED THE ADDITION OF INJECTABLE INSULIN THERAPY THOUGH PATIENT ADAMANTLY REFUSES.? HE WILL WORK ON LIFESTYLE TO REDUCE HIS CARBOHYDRATES. He reports he also will not check blood sugars at home as he does not like needles ? PLAN: He will continue on current doses oral antihyperglycemic medication [facility] Medical History Vertigo H/O deep venous thrombosis Surgical History History of cervical spinal surgery Family History Father No problems noted. Mother Heart disease Social History Housing: House Alcohol intake: never Patient Tobacco Use Status: Never used Tobacco e-Cigarette/Vaping Use: Never Used Second Hand Smoke Exposure: No service: No Current occupational status: employed Current occupational exposures/hazards: No Cognitive needs: No Hearing needs: No Vision needs: Yes (glasses) Questionnaire Thrive Questionnaire Date Thrive assessed: 10/15/23 ABDOUL-7 AMB Questionnaire ABDOUL-7 Date ABDOUL - 7 assessed: 02/28/23 Source: Developed by Drs. Martín Iglesias, Court Page, Valeriano Amado and colleagues, with an educational niesha from [employer]. Review of Systems Const Denies headache(s) Eyes Denies loss of vision ENT Denies vertigo, Denies dizziness, Denies headache(s) and Denies sore throat Card Denies chest pain, Denies leg edema and Denies lightheadedness Resp Denies cough, Denies hemoptysis and Denies wheezing GI Denies abdominal pain, Denies melena, Denies constipation, Denies diarrhea and Denies vomiting Denies dysuria, Denies urinary frequency and Denies urinary urgency Musc Denies arthralgias, Denies joint swelling, Denies numbness and Denies tingling Neuro Denies Abnormal speech present, Denies behavioral changes, Denies vertigo, Denies dizziness, Denies headache(s), Denies loss of vision, Denies memory loss, Denies numbness and Denies tingling Psych Denies anxiety, Denies behavioral changes, Denies depression, Denies memory loss and Denies panic attacks Mahesh/Lymph Denies easy bleeding and Denies easy bruising Aller/Immun Denies wheezing Physical exam (Primary Care) Vital Signs: Last Vital Signs Pulse 77 04/13/24 11:01 BP 94/60 04/13/24 11:01 Pulse Ox 97 04/13/24 11:01 Oxygen Delivery Method Room Air 04/13/24 11:01 BMI result Body Mass Index 25.9 Tobacco/Smoking Status: Tobacco use Status Tobacco use date assessed 10/15/23 04/13/24 11:03 Patient Tobacco Use Status Never used Tobacco 04/13/24 11:03 e-Cigarette/Vaping Use Never Used 04/13/24 11:03 Thrive Assessment: Date of Thrive Assessment Date Thrive assessed 10/15/23 04/13/24 11:03 Const General: healthy appearing, no acute distress, alert and awake Nutritional Appearance: well nourished Orientation/consciousness: oriented to person, oriented to place and oriented to time HENMT Ears: TM's normal bilaterally General nose exam: Normal nasal mucous membranes and turbinates present Eyes Conjunctivae: conjunctivae normal Sclerae: sclerae normal Pupils: Equal, round and reactive pupils present Neck Neck: Yes no lymphadenopathy and Yes no JVD Thyroid: Thyroid normal Carotids: no bruits Resp Effort & Inspection: normal respiratory effort and not tachypneic Auscultation: no crackles, no rales, no rhonchi and no wheezes Cardio Rate: regular rate Rhythm: regular rhythm Heart sounds: no murmurs and normal S1 and S2 GI Palpation (GI): Soft to palpation, nontender, no hepatomegaly and no splenomegal y Auscultation: normal bowel sounds Skin General skin exam: no rashes or lesions noted and dry skin Neuro General: oriented to person, oriented to place and oriented to time Cranial nerves: Yes Equal, round and reactive pupils present Speech: No Abnormal speech present Gait exam (Neuro): Normal gait present Motor exam (neuro): no tremor noted Extrem Right upper extremity: full ROM Left upper extremity: full ROM Right lower extremity: full ROM; no edema Left lower extremity: full ROM; no edema Psych Mental Status: mental status grossly normal Speech and movement: Normal speech and movement present Affect: normal affect Attitude: cooperative Thought process: Normal thought process present Results AMB Hemoglobin A1c AMB Hemoglobin A1c 8.1 % Last Edit by RAMOS Scherer on 04/13/24 11:14 Results Reviewed Results Reviewed: Laboratory Last Values Hgb A1c (Clinic) 8.1 % (4.0-6.0) H 04/13/24 11:13 Assessment and Plan Assessment & Plan (1) DMII (diabetes mellitus, type 2): Code(s): E11.9 - Type 2 diabetes mellitus without complications Qualifiers: Diabetes mellitus shear helper insulin use: without [place] [facility] use Diabetes mellitus complication status: without complication Qualified Code(s): E11.9 - Type 2 diabetes mellitus without complications Plan: Patient's diabetes has been suboptimally controlled. A1c has improved at 8.1 from 8.4. Has been noticing weight loss, muscle weakness and intermittent dizziness most likely secondary to uncontrolled diabetes and his recent renal disease. Advised to stay well hydrated He continues to decline offer start insulin as I continued to report he will likely benefit him on controlling his diabetes. Was on insulin while in the hospital -CONTINUES TO REFUSE INSULIN. He continues on metformin, Januvia, Farxiga and glipizide. Goal A1c is to be below 7.0 (2) HTN (hypertension): Code(s): I10 - Essential (primary) hypertension Qualifiers: Hypertension type: essential hypertension Qualified Code(s): I10 - Essential (primary) hypertension Plan: Blood pressure on the low side today in office. Has been a bit low at home. Will decrease his amlodipine to 5 mg. Advised to continue monitoring blood pressure at home with goal blood pressure t o be below 140/90 (3) CAD (coronary artery disease): Comment: Had coronary catheterization showing 80% blockage of the LAD no intervention at the time Code(s): I25.10 - Atherosclerotic heart disease of [place] coronary artery without angina pectoris Qualifiers: Coronary Disease-Associated Artery/Lesion type: [place] artery [place] vs. 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 Most recent lipid panel showing appropriate LDL at 60. He otherwise denies any chest discomfort, shortness of breath on exertion or dizziness. (4) Hypothyroidism: Code(s): E03.9 - Hypothyroidism, unspecified Qualifiers: Hypothyroidism type: unspecified Qualified Code(s): E03.9 - Hypothyroidism, unspecified Plan: Patient's most recent TSH stable. Has been chemically and clinically euthyroid. Will continue TSH monitoring Will continue levothyroxine 75 mcg Orders: Orders AMB Hemoglobin A1c Today E11.9 - Type 2 diabetes mellitus without complications Lipid Panel Today I25.10 - Atherosclerotic heart disease of [place] coronary artery without angina pectoris Comprehensive [place]. Panel Fast Today E11.9 - Type 2 diabetes mellitus without complications Prostate Specific Antigen Scr Today E03.9 - Hypothyroidism, unspecified, Z12.5 - Encounter for screening for malignant neoplasm of prostate Complete Blood Count no Diff Today E11.9 - Type 2 diabetes mellitus without complications TSH reflex Free T4 Today E03.9 - Hypothyroidism, unspecified Medications: New amlodipine 5 mg PO DAILY 90 days 90 tabs 2RF I10 - Essential (primary) hypertension Discontinued clopidogrel Discontinued Reason: Doctor's Order 75 mg PO DAILY 90 tabs 1RF amlodipine Discontinued Reason: Doctor's Order 10 mg PO DAILY 90 days 90 tabs 1RF I10 - Essential (primary) hypertension Patient Instructions: Goal: A1c to be below 7.0, LDL to be optimally below 70 Barriers: Adherence to physical activity and healthy eating habits Coding Level of Care Code Est Pt Level 4 (39533) Complex EM visit Add On [id number] Diagnoses Type 2 diabetes mellitus without complication, without long-term current use of insulin E11.9 Diabetes mellitus shear helper insulin use: without [place] [facility] use Diabetes mellitus complication status: without complication Essential hypertension I10 Hypertension type: essential hypertension Coronary artery disease involving [place] coronary artery of [place] heart without angina pectoris I25.10 Coronary Disease-Associated Artery/Lesion type: [place] artery [place] vs. transplanted heart: [place] heart Associated angina: without angina Hypothyroidism, unspecified type E03.9 Hypothyroidism type: unspecified
== END 2024-04-13 11:30 | disposition home or self-care (01) ==
PROVIDERS: PCP Physician Assistant; Visit Provider Physician Assistant
DX: E11.9 Type 2 diabetes mellitus without complications (principal); I10 Essential (primary) hypertension; I25.10 Atherosclerotic heart disease of native coronary artery without angina pectoris; E03.9 Hypothyroidism, unspecified
CPT/HCPCS: 83036; 99214; G2211

== ENCOUNTER 2024-09-21 08:38 | Outpatient (AMB) | payer MEDICARE, SELFPAY ==
--- NOTE | 2024-09-21 08:45 | A.OFFPC_ITS ---
Vital Signs 09/21/24 08:47 Height 5 ft 11 in Weight 187 lb 6 oz BMI 26.1 BP 126/72 Blood Pressure Location Lt brachial Position Sitting Pulse 72 Pulse Source Pulse Oximeter Pulse Oximetry (%) 96 Oxygen Delivery Method Room Air Intake Visit Reasons: [facility] 09/15 Stroke to the eye Intake Note: Patient is here to follow-up after a visit the emergency department at [facility] on 09/15/24. Pt decline flu shot today. Director Of Neurology Required: No Senior Construction Manager: Present Accompanied by: Spouse Allergies lisinopril Adverse Reaction (Mild, Verified 09/21/24 08:46) Cough Medication List - Last Reconciled 09/21/24 by Pedro Ellison MD amlodipine 5 mg PO DAILY 90 days aspirin 81 mg PO DAILY clopidogrel (Plavix) 75 mg PO DAILY dapagliflozin propanediol (Farxiga) 10 mg PO DAILY 90 days folic acid 1 mg PO DAILY glipizide 5 mg PO DAILY 90 days levothyroxine 75 mcg PO QAM metformin 500 mg PO BID 90 days metoprolol succinate ER 25 mg PO DAILY miscellaneous medical supply 1 ea miscellaneous DAILY 99 days rosuvastatin 20 mg PO DAILY sitagliptin phosphate (Januvia) 50 mg PO DAILY 90 days Tobacco use date assessed: 09/21/24 Fall risk assessment: No Falls in past year Last assessed Fall Risk: 09/21/24 Dental Screening Dental Screen Date: 12/26/23 [facility] Medical History (Updated 09/21/24 @ 09:23 by Pedro Ellison MD) CVA (cerebral vascular accident) Vertigo H/O deep venous thrombosis Surgical History History of cervical spinal surgery Family History Father No problems noted. Mother Heart disease Social History Housing: House Alcohol intake: never Patient Tobacco Use Status: Never used Tobacco e-Cigarette/Vaping Use: Never Used Second Hand Smoke Exposure: No service: No Current occupational status: employed Current occupational exposures/hazards: No Cognitive needs: No Hearing needs: No Vision needs: Yes (glasses) Questionnaire Thrive Questionnaire Date Thrive assessed: 10/15/23 AUDIT C Alcohol Use Questionnaire (AUDIT-C) 3. How often do you have six or more drinks on one occasion?: Never Total Score: 0 ABDOUL-7 AMB Questionnaire ABDOUL-7 Date ABDOUL - 7 assessed: 09/21/24 Feeling nervous, anxious, or on edge: 0 = Not at all Not being able to stop or control worryin = Not at all Worrying too much about different things: 0 = Not at all Trouble relaxin = Not at all Being so restless that it is hard to sit still: 0 = Not at all Becoming easily annoyed or irritable: 0 = Not at all Feeling afraid as if something awful might happen: 0 = Not at all Total ABDOUL-7 score (0-4 normal; 5-9 mild; 10-14 moderate; 15-21 severe): 0 Source: Developed by Drs. Martín Iglesias, Court Page, Valeriano Amado and colleagues, with an educational niesha from [employer]. Physical exam (Primary Care) Vital Signs: Last Vital Signs Pulse 72 09/21/24 08:47 BP 126/72 09/21/24 08:47 Pulse Ox 96 09/21/24 08:47 Oxygen Delivery Method Room Air 09/21/24 08:47 BMI result Body Mass Index 26.1 Tobacco/Smoking Status: Tobacco use Status Tobacco use date assessed 09/21/24 09/21/24 08:51 Patient Tobacco Use Status Never used Tobacco 09/21/24 08:51 e-Cigarette/Vaping Use Never Used 09/21/24 08:51 Thrive Assessment: Date of Thrive Assessment Date Thrive assessed 10/15/23 09/21/24 08:51 Coding Level of Care Code Est Pt Level 4 (45218) Complex EM visit Add On G2211 Diagnoses Type 2 diabetes mellitus without complication, without long-term current use of insulin E11.9 Diabetes mellitus [facility] insulin use: without [facility] use Diabetes mellitus complication status: without complication CVA (cerebral vascular accident) I63.9 Assessment & Plan Assessment & Plan (1) DMII (diabetes mellitus, type 2): Code(s): E11.9 - Type 2 diabetes mellitus without complications Category: Medical Qualifiers: Diabetes mellitus [facility] insulin use: without clinical case manager use Diabetes mellitus complication status: without complication Qualified Code(s): E11.9 - Type 2 diabetes mellitus without complications Plan: Elevated A1c. Patient declines to start insulin. Metformin dosage increased to 1 g twice a day. History of renal dysfunction in the past. Patient understands the risk. Declines to check his blood sugars at home. Continue Januvia, Farxiga and glipizide at the same dosage. (2) CVA (cerebral vascular accident): Code(s): I63.9 - Cerebral infarction, unspecified Category: Medical Plan: Awaiting official records from [facility]. Continue Plavix and Aspirin. Awaiting Echo results. Plan History of Present Illness The patient is a 78-year-old male presenting with sudden vision loss in the left eye. The patient reported that the loss of vision began on the Saturday after , and he did not seek immediate care. His noted this on Saturday night and attempted to take him to the emergency room, but he declined. Subsequently, the patient's crude oil driver evaluated him on Saturday morning, leading to an emergency room visit where a CT scan was performed. The results indicated a possible stroke in the left eye. The patient had no prior episodes of vision issues. The ER visit included a day and a half hospitalization for further evaluation, including a cardiac echocardiogram. The patient was not previously on blood thinners but has been started on medications recently. Additionally, diabetic management was discussed, noting that his A1c in the hospital was elevated at 10.2, leading to adjustments in his medication regimen. 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 - He is functionally independent, managing daily activities without assistance. - The patient denies current use of tobacco or alcohol. Review of Systems - Vision: Reports complete vision loss in the left eye with perceptions of black shadow and white lines; denies light perception or ability to read. - Neurological: Denies nerve deficits, stumbling, drooling, confusion, or agitation. - Cardiovascular: Denies any known cardiac problems beyond historical episodes of leg blood clots. - Renal: History of renal failure secondary to sepsis with creatinine stabilized at 1.6. Physical Exam General: Appearance normal, left eye with sudden loss of vision, right eye normal Nutritional Appearance: Well nourished Orientation/consciousness: Patient oriented x3 Limitations: No limitations Head: Normal to inspection Neck: Normal visual inspection Chest: Normal palpation of entire chest wall Respiratory: Normal respiratory effort Neurology: Patient oriented x3, no nerve deficit elsewhere Fundus: Light reflex visible in both eyes Results - CT Scan: official results not available yet - Echocardiogram: No details provided, results sought. Plan Patient was informed and verbally consented to the use of an ambient scribe for clinic note documentation during this visit. Discussion Notes During the visit, I reviewed the recent loss of vision and the implications of the suspected stroke in the left eye. The patient and his were informed about the importance of the ophthalmology follow-up scheduled on . We discussed the alterations in his diabetic medication regimen in response to elevated A1c levels noted during hospitalization. I emphasized the need for regular blood sugar monitoring at home. We confirmed the ongoing need to track his renal function closely, especially with medication adjustments. It was also mentioned that Plavix had been resumed for anticoagulation. The patient was advised against driving until after the ophthalmology evaluation. Patient Instructions - Follow up with installation engineer on for further evaluation. - Continue current medication regimen, including adjusted metformin dosage. - Refrain from driving until cleared by installation engineer. - Monitor for any new or worsening symptoms and seek medical attention if necessary. - Follow up with Tom in December as scheduled. - Maintain regular monitoring of blood glucose levels at home if possible. - Ensure compliance with follow-up appointments with specialists as previously arranged. Medications: New folic acid 1 mg PO DAILY 90 tabs 1RF Pedro Ellison MD Changed From rosuvastatin 40 mg PO DAILY 90 tabs 2RF To rosuvastatin 20 mg PO DAILY Tom Collins PA-C From metformin 500 mg PO BID 90 days 180 tabs 1RF E11.9 - Type 2 diabetes mellitus without complications To metformin 1,000 mg (2 x 500 mg) PO BID 90 days 360 tabs 1RF E11.9 - Type 2 diabetes mellitus without complications Pedro Ellison MD
[2024-09-21 08:47] VITALS: BP 126/72; PULSE 72; O2SAT 96; BMI 26.1
== END 2024-09-21 09:16 | disposition home or self-care (01) ==
PROVIDERS: PCP Physician Assistant; Visit Provider Internal Medicine
DX: E11.9 Type 2 diabetes mellitus without complications (principal); I63.9 Cerebral infarction, unspecified

== ENCOUNTER → 2024-09-21 08:38 | Outpatient (BNVA) | payer MEDICARE, SELFPAY | PROVIDERS: PCP Physician Assistant; Visit Provider Internal Medicine | DX: E11.9 Type 2 diabetes mellitus without complications (principal); I63.9 Cerebral infarction, unspecified | CPT/HCPCS: 96127; 99212 ==

== ENCOUNTER 2024-10-22 08:01 | Outpatient (AMB) | payer MEDICARE, SELFPAY ==
--- NOTE | 2024-10-22 08:17 | A.OFFPC_ITS ---
Vital Signs 10/22/24 08:19 Height 5 ft 11 in Weight 189 lb 6 oz BMI 26.4 BP 134/60 Blood Pressure Location Lt brachial Position Sitting Intake Visit Reasons: 6 Month F/U Intake Note: Patient is here to follow up on DM, SEBASTI[place]N, HTN, CAD. Pt decline flu shot today. Panel Saw Operator Required: No Associate Project Manager: Present Accompanied by: Spouse Allergies lisinopril Adverse Reaction (Mild, Verified 10/22/24 08:31) Cough Medication List - Last Reconciled 10/22/24 by Tom Collins PA-C amlodipine 5 mg PO DAILY 90 days aspirin 81 mg PO DAILY clopidogrel (Plavix) 75 mg PO DAILY dapagliflozin propanediol (Farxiga) 10 mg PO DAILY 90 days folic acid 1 mg PO DAILY glipizide 5 mg PO DAILY 90 days levothyroxine 75 mcg PO QAM metformin 1,000 mg (2 x 500 mg) PO BID 90 days metoprolol succinate ER 25 mg PO DAILY miscellaneous medical supply 1 ea miscellaneous DAILY 99 days rosuvastatin 20 mg PO DAILY sitagliptin phosphate (Januvia) 50 mg PO DAILY 90 days Tobacco use date assessed: 10/22/24 Fall risk assessment: No Falls in past year Last assessed Fall Risk: 10/22/24 Dental Screening Dental Screen Date: 10/22/24 Did you have a dental visit in the last 12 months?: Yes Did you have a dental problem in the last 6 months where you did not have access to dental care?: No Was dental information given to patient?: Patient has dentist HPI 6 Month F/U HPI Details Rich is a 78 y/o M here today for a follow-up visit. ? Pmhx significant for DMII, HTN, HLD, hypothyroid, CAD, h/o DVT, nephrolithiasis.' .. Renal impairment: Most recent labs showing improved renal function with a creatinine at 1.7 and a GFR at 40. .. In September of 2024 recently had acute vision loss and was found to have stroke affecting his left eye. Has followed up with Ophthalmology. Has been cleared by his growth hacker to drive. No commercial driving CHRONIC MEDICAL CONDITIONS--> ? .. ? HTN:? Blood pressure today in office acceptable. Blood pressures were reported as stable at home. Will continue his current dose of antihypertensives ? . ? CAD:Is followed by Dr. Gallegos whom he seen couple times per year.? Has had cardiac catheterization in 2015 showing moderate stenosis of the coronary arteries though no stent placement.? He otherwise denies any chest pain, dizziness, shortness of breath on exertion.? Most recent lipid panel showing appropriate LDL at 60. His Plavix has recently been restarted. ? .. ? DMII: Does not check his sugars at home. denies any hypergycemic symptoms.? Most recent A1c was 8.8 from 10.2. . His metformin was increased to a 1000 b.i.d.. . .? AGAIN STRONGLY ADVISED THE ADDITION OF INJECTABLE INSULIN THERAPY THOUGH PATIENT ADAMANTLY REFUSES.? HE WILL WORK ON LIFESTYLE TO REDUCE HIS CARBOHYDRATES. He reports he also will not check blood sugars at home as he does not like needles ? PLAN: He will continue on current doses oral antihyperglycemic medication. .. [facility] Medical History CVA (cerebral vascular accident) Vertigo H/O deep venous thrombosis Surgical History History of cervical spinal surgery Family History Father No problems noted. Mother Heart disease Social History Housing: House Alcohol intake: never Patient Tobacco Use Status: Never used Tobacco e-Cigarette/Vaping Use: Never Used Second Hand Smoke Exposure: No service: No Current occupational status: employed Current occupational exposures/hazards: No Cognitive needs: No Hearing needs: No Vision needs: Yes (glasses) Questionnaire PHQ-9 Over the last 2 weeks, how often have you been bothered by any of the following problems? 1. Little interest or pleasure in doing things: not at all 2. Feeling down, depressed, or hopeless: not at all 3. Trouble falling or staying asleep, or sleeping too much: not at all 4. Feeling tired or having little energy: not at all 5. Poor appetite or overeating: not at all 6. Feeling bad about yourself - or that you are a failure or have let yourself or your family down: not at all 7. Trouble concentrating on things, such as reading the newspaper or watching television: not at all 8. Moving or speaking so slowly that other people could have noticed. Or the opposite - being so fidgety or restless that you have been moving around a lot more than usual: not at all 9. Thoughts that you would be better off or of hurting yourself in some way: not at all Total score: 0 Depression Screening Interpretation: Negative Depression Screening Done: Yes 33591 - PHQ-9 Billing: Yes Source: Developed by Drs. Martín Iglesias, Court Page, Valeriano Amado and colleagues, with an educational niesha from [employer]. Thrive Questionnaire Date Thrive assessed: 10/22/24 I am a: Patient What is your living situation today?: I have a steady place to live Within the past 12 months, did the food you bought not last and you didn't have the money to get more?: Never true Within the past 12 months, did you worry whether your food would run out before you got money to buy more?: Never true Do you have trouble paying for medicines?: No Do you have trouble getting transportation to medical appointments?: No Do you have trouble paying your heating and electricity bill?: No Do you have trouble taking care of your child, family member or friend?: No Do you have trouble with day-to-day activities such as bathing, preparing meals, shopping, managing finances, etc.?: No Are you currently unemployed and looking for a job?: No Are you interested in more education?: No Please select the resources that you would like help with: None Currently or been in a relationship where the following occur: No concerns reported THRIVE Score: 0 AUDIT C Alcohol Use Questionnaire (AUDIT-C) 1. How often do you have a drink containing alcohol?: Never 3. How often do you have six or more drinks on one occasion?: Never Total Score: 0 ABDOUL-7 AMB Questionnaire ABDOUL-7 Date ABDOUL - 7 assessed: 10/22/24 Feeling nervous, anxious, or on edge: 0 = Not at all Not being able to stop or control worryin = Not at all Worrying too much about different things: 0 = Not at all Trouble relaxin = Not at all Being so restless that it is hard to sit still: 0 = Not at all Becoming easily annoyed or irritable: 0 = Not at all Feeling afraid as if something awful might happen: 0 = Not at all Total ABDOUL-7 score (0-4 normal; 5-9 mild; 10-14 moderate; 15-21 severe): 0 Source: Developed by Drs. Martín Iglesias, Court Page, Valeriano Amado and colleagues, with an educational niesha from [employer]. ABDOUL-7 Assessment Billing ABDOUL-7 Assessment Tool: ABDOUL-7 Assessment 91529 Review of Systems Const Denies headache(s) Eyes Denies loss of vision ENT Denies vertigo, Denies dizziness, Denies headache(s) and Denies sore throat Card Denies chest pain, Denies leg edema and Denies lightheadedness Resp Denies cough, Denies hemoptysis and Denies wheezing GI Denies abdominal pain, Denies melena, Denies constipation, Denies diarrhea and Denies vomiting Denies dysuria, Denies urinary frequency and Denies urinary urgency Musc Denies arthralgias, Denies joint swelling, Denies numbness and Denies tingling Neuro Denies Abnormal speech present, Denies behavioral changes, Denies vertigo, Denies dizziness, Denies headache(s), Denies loss of vision, Denies memory loss, Denies numbness and Denies tingling Psych Denies anxiety, Denies behavioral changes, Denies depression, Denies memory loss and Denies panic attacks Mahesh/Lymph Denies easy bleeding and Denies easy bruising Aller/Immun Denies wheezing Physical exam (Primary Care) Vital Signs: Last Vital Signs BP 134/60 10/22/24 08:19 BMI result Body Mass Index 26.4 Tobacco/Smoking Status: Tobacco use Status Tobacco use date assessed 10/22/24 10/22/24 08:24 Patient Tobacco Use Status Never used Tobacco 10/22/24 08:24 e-Cigarette/Vaping Use Never Used 10/22/24 08:24 PHQ-9: PHQ-9 Score PHQ-9: Total score 0 10/22/24 08:50 Depression Screening Interpretation: Negative Thrive Assessment: Date of Thrive Assessment Date Thrive assessed 10/22/24 10/22/24 08:24 Currently or been in a relationship where the following occur: No concerns reported Const General: healthy appearing, no acute distress, alert and awake Nutritional Appearance: well nourished Orientation/consciousness: oriented to person, oriented to place and oriented to time HENMT Ears: TM's normal bilaterally General nose exam: Normal nasal mucous membranes and turbinates present Eyes Conjunctivae: conjunctivae normal Sclerae: sclerae normal Pupils: Equal, round and reactive pupils present Neck Neck: Yes no lymphadenopathy and Yes no JVD Thyroid: Thyroid normal Carotids: no bruits Resp Effort & Inspection: normal respiratory effort and not tachypneic Auscultation: no crackles, no rales, no rhonchi and no wheezes Cardio Rate: regular rate Rhythm: regular rhythm Heart sounds: no murmurs and normal S1 and S2 GI Palpation (GI): Soft to palpation, nontender, no hepatomegaly and no splenomegaly Auscultation: normal bowel sounds Skin General skin exam: no rashes or lesions noted and dry skin Neuro General: oriented to person, oriented to place and oriented to time Cranial nerves: Yes Equal, round and reactive pupils present Speech: No Abnormal speech present Gait exam (Neuro): Normal gait present Motor exam (neuro): no tremor noted Extrem Right upper extremity: full ROM Left upper extremity: full ROM Right lower extremity: full ROM; no edema Left lower extremity: full ROM; no edema Psych Mental Status: mental status grossly normal Speech and movement: Normal speech and movement present Affect: normal affect Attitude: cooperative Thought process: Normal thought process present Coding Level of Care Code Est Pt Level 4 (51917) Diagnoses Type 2 diabetes mellitus without complication, without long-term current use of insulin E11.9 Diabetes mellitus complication status: without complication Diabetes mellitus switchboard mechanic insulin use: without switchboard mechanic use 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 transplanted heart: wrangell heart Essential hypertension I10 Hypertension type: essential hypertension Hypothyroidism, unspecified type E03.9 Hypothyroidism type: unspecified Additional Codes ABDOUL-7 Assessment Billing - ABDOUL-7 Assessment Tool: ABDOUL-7 Assessment 34377 ([id number]) PHQ-9 - 87869 - PHQ-9 Billing: Yes ([id number]) Assessment & Plan Assessment & Plan (1) DMII (diabetes mellitus, type 2): Code(s): E11.9 - Type 2 diabetes mellitus without complications Category: Medical Qualifiers: Diabetes mellitus complication status: without complication Diabetes mellitus switchboard mechanic insulin use: without residential use Qualified Code(s): E11.9 - Type 2 diabetes mellitus without complications Plan: Patient's type 2 diabetes suboptimally controlled with most recent A1c at 8.8. His metformin has been increased to maximal dose of 2 g daily. Continues with Farxiga and glipizide 5 mg daily. He is adamantly against starting any injectable therapies. We did discuss perhaps a once a week GLP 1 that may reduce his cardiovascular event risk though he declines. For now will continue his current antihyperglycemic medication he will work extensively on dietary modifications A1c to be below 7.0 (2) CVA (cerebral vascular accident): Code(s): I63.9 - Cerebral infarction, unspecified Category: Medical Qualifiers: CVA mechanism: embolism Laterality of affected vessel: left Precerebral and cerebral artery: vertebral artery Qualified Code(s): I63.112 - Cerebral infarction due to embolism of left vertebral artery Plan: As per HPI patient recently had a small CVA affecting his left eye vision. Has followed up with Ophthalmology and was given permission to drive again though no commercial driving. Will continue to risk modify reducing blood pressure, cholesterol and trying to capture glycemic control. Goal LDL to be optimally below 70. (3) CAD (coronary artery disease): Comment: Had coronary catheterization showing 80% blockage of the LAD no intervention at the time Code(s): I25.10 - Atherosclerotic heart disease of wrangell coronary artery without angina pectoris Category: Medical Qualifiers: Associated angina: without angina Coronary Disease-Associated Artery/Lesion type: wr[place]ell artery [place] vs. transplanted heart: wrangell heart Qualified Code(s): I25.10 - Atherosclerotic heart disease of wrangell coronary artery without angina pectoris Plan: Patient continues to follow cardiology in [place]. Most recent lipid panel showing good control of his total cholesterol and LDL. He continues on Plavix and Crestor. (4) HTN (hypertension): Code(s): I10 - Essential (primary) hypertension Category: Medical Qualifiers: Hypertension type: essential hypertension Qualified Code(s): I10 - Essential (primary) hypertension Plan: Patient's blood pressure today in office acceptable. Will continue his current antihypertensive medication with goal blood pressure to be below 140/90. (5) Hypothyroidism: Code(s): E03.9 - Hypothyroidism, unspecified Category: Medical Qualifiers: Hypothyroidism type: unspecified Qualified Code(s): E03.9 - Hypothyroidism, unspecified Plan: Patient's most recent TSH stable at 0.7. Will continue his current dose of levothyroxine 75 mcg. Will continue to follow TSH to assure normal. Orders: Orders Microalbumin, Random (w Creat) Today I10 - Essential (primary) hypertension Lipid Panel Today I25.10 - Atherosclerotic heart disease of wrangell coronary artery without angina pectoris TSH reflex Free T4 Today E03.9 - Hypothyroidism, unspecified Comprehensive [place]. Panel Fast Today I25.10 - Atherosclerotic heart disease of wrangell coronary artery without angina pectoris Complete Blood Count no Diff Today I25.10 - Atherosclerotic heart disease of wrangell coronary artery without angina pectoris Medications: New rosuvastatin (Crestor) 20 mg PO DAILY 90 tabs 1RF 90 days I25.10 - Atherosclerotic heart disease of wrangell coronary artery without angina pectoris metformin 1,000 mg PO BID 180 tabs 1RF 90 days E11.9 - Type 2 diabetes mellitus without complications Discontinued metformin Discontinued Reason: Doctor's Order 1,000 mg (2 x 500 mg) PO BID 90 days 360 tabs 1RF E11.9 - Type 2 diabetes mellitus without complications Patient Instructions: Goal: A1c to be below 7.0, LDL to remain below 100 preferably below 70. Barriers: Adherence to physical activity and healthy eating habits. Apprehensive on starting insulin therapy to control his diabetes
[2024-10-22 08:19] VITALS: BP 134/60; BMI 26.4
== END 2024-10-22 08:47 | disposition home or self-care (01) ==
PROVIDERS: PCP Physician Assistant; Visit Provider Physician Assistant
DX: E11.9 Type 2 diabetes mellitus without complications (principal); I63.112 Cerebral infarction due to embolism of left vertebral artery; I25.10 Atherosclerotic heart disease of native coronary artery without angina pectoris; I10 Essential (primary) hypertension; E03.9 Hypothyroidism, unspecified

== ENCOUNTER → 2024-10-22 08:01 | Outpatient (BNVA) | payer MEDICARE, SELFPAY | PROVIDERS: PCP Physician Assistant; Visit Provider Physician Assistant | DX: E11.9 Type 2 diabetes mellitus without complications (principal); I10 Essential (primary) hypertension; E78.5 Hyperlipidemia, unspecified; E03.9 Hypothyroidism, unspecified; I25.10 Atherosclerotic heart disease of native coronary artery without angina pectoris; E30.9 Disorder of puberty, unspecified; Z86.718 Personal history of other venous thrombosis and embolism; Z87.442 Personal history of urinary calculi; Z86.73 Personal history of transient ischemic attack (TIA), and cerebral infarction without residual deficits | CPT/HCPCS: 96127; 99212 ==

== ENCOUNTER 2025-05-18 15:19 | Outpatient (AMB) | payer MEDICARE, SELFPAY ==
--- NOTE | 2025-05-18 15:26 | MHC.PC.OV ---
Vital Signs 05/18/25 15:27 Height 5 ft 11 in Weight 185 lb 2 oz BMI 25.8 BP 130/66 Blood Pressure Location Lt brachial Position Sitting Pulse 80 Pulse Source Pulse Oximeter Temp 97.3 F Temp Source Temporal Artery Scan Pulse Oximetry (%) 96 Oxygen Delivery Method Room Air Intake Visit Reasons: [facility] 05/16 Intake Note: Patient is here for hospital discharge follow up. Patient was discharged from [facility] to [facility] rehab on 05/16/25. Requesting for [employer] xander 3 or 3 plus sensor and meter. Child Center Assistant Required: No Manager Sap: Present Accompanied by: Spouse Allergies lisinopril Adverse Reaction (Mild, Verified 05/18/25 15:27) Cough Medication List - Last Reconciled 05/18/25 by Tom Collins PA-C amiodarone 200 mg PO BID apixaban (Eliquis) 5 mg PO BID aspirin 81 mg PO DAILY ferrous sulfate (FeroSul) 325 mg PO BID folic acid 1 mg PO DAILY insulin aspart U-100 1 sliding scale dose subcut USEASDIRECTD insulin glargine-yfgn 44 units subcut DAILY levothyroxine 75 mcg PO QAM meclizine 25 mg PO BID PRN 15 days miscellaneous medical supply 1 ea miscellaneous DAILY 99 days multivitamin 1 tab PO DAILY quetiapine (Seroquel) 12.5 mg PO DAILY rosuvastatin (Crestor) 20 mg PO DAILY 90 days Tobacco use date assessed: 05/18/25 Fall risk assessment: No Falls in past year Last assessed Fall Risk: 05/18/25 Dental Screening Dental Screen Date: 10/22/24 HPI [facility] 05/16 HPI Details Rich is a 79 y/o M here today for a follow-up visit recently discharged from short-term rehab. ? Pmhx significant for DMII, HTN, HLD, hypothyroid, CAD, h/o DVT, nephrolithiasis.' ? .. ? HTN:? Blood pressure today in office acceptable. Blood pressures were reported as stable at home. Will continue his current dose of antihypertensives ? . ? CAD:Is followed by Dr. Gallegos whom he seen couple times per year.? Has had cardiac catheterization in 2014 showing moderate stenosis of the coronary arteries though no stent placement.? Patient underwent a catheterization which showed severe mid LAD stenosis and severe ostial diagonal stenosis in likely severe ostial OM stenosis. Recommendations remain for coronary artery bypass which was done with Dr. Hernandez at [facility]. The patient underwent triple bypass surgery on April 30, performed by Dr. Parker Hernandez. Post-surgery, the patient was in short-term rehabilitation and was discharged last Saturday. He reports no issues adjusting to being home and has resumed activities such as showering independently. ? .. ? Type 2 diabetes: Patient is now off of oral antihyperglycemics. The patient has diabetes mellitus and is on insulin therapy, although adherence is inconsistent. He has been consistent with the use of his insulin therapy while during his hospitalization and during rehab.. His blood glucose levels have been noted to drop to the 60s and 70s in the mornings, and his A1c has improved from 9.1 to 7.4. He is currently using insulin glargine and is learning to manage his insulin administration. He has been established with [facility] endocrinology and has upcoming appointment in June. Family is asking for [employer] Xander his to monitor blood sugar more regularly ?. [facility] Medical History CVA (cerebral vascular accident) Vertigo H/O deep venous thrombosis Surgical History History of open heart surgery History of cervical spinal surgery Family History Father No problems noted. Mother Heart disease Social History Housing: House Alcohol intake: never Patient Tobacco Use Status: Never used Tobacco e-Cigarette/Vaping Use: Never Used Second Hand Smoke Exposure: No service: No Current occupational status: employed Current occupational exposures/hazards: No Cognitive needs: Yes (walker, wheelchair, cane) Hearing needs: No Vision needs: Yes (glasses) Questionnaire Thrive Questionnaire Date Thrive assessed: 05/18/25 I am a: Patient What is your living situation today?: I have a steady place to live Within the past 12 months, did the food you bought not last and you didn't have the money to get more?: Never true Within the past 12 months, did you worry whether your food would run out before you got money to buy more?: Never true Do you have trouble paying for medicines?: No Do you have trouble getting transportation to medical appointments?: No Do you have trouble paying your heating and electricity bill?: No Do you have trouble taking care of your child, family member or friend?: No Do you have trouble with day-to-day activities such as bathing, preparing meals, shopping, managing finances, etc.?: No Are you currently unemployed and looking for a job?: No Are you interested in more education?: No Please select the resources that you would like help with: None Currently or been in a relationship where the following occur: No concerns reported THRIVE Score: 0 AUDIT C Alcohol Use Questionnaire (AUDIT-C) 1. How often do you have a drink containing alcohol?: Never Total Score: 0 ABDOUL-7 AMB Questionnaire ABDOUL-7 Date ABDOUL - 7 assessed: 05/18/25 Feeling nervous, anxious, or on edge: 0 = Not at all Not being able to stop or control worryin = Not at all Worrying too much about different things: 0 = Not at all Trouble relaxin = Not at all Being so restless that it is hard to sit still: 0 = Not at all Becoming easily annoyed or irritable: 0 = Not at all Feeling afraid as if something awful might happen: 0 = Not at all Total ABDOUL-7 score (0-4 normal; 5-9 mild; 10-14 moderate; 15-21 severe): 0 Source: Developed by Drs. Martín Iglesias, Court Page, Valeriano Amado and colleagues, with an educational niesha from [employer]. Review of Systems Const Denies headache(s) Eyes Denies loss of vision ENT Denies vertigo, Denies dizziness, Denies headache(s) and Denies sore throat Card Denies chest pain, Denies leg edema and Denies lightheadedness Resp Denies cough, Denies hemoptysis and Denies wheezing GI Denies abdominal pain, Denies melena, Denies constipation, Denies diarrhea and Denies vomiting Denies dysuria, Denies urinary frequency and Denies urinary urgency Musc Denies arthralgias, Denies joint swelling, Denies numbness and Denies tingling Neuro Denies Abnormal speech present, Denies behavioral changes, Denies vertigo, Denies dizziness, Denies headache(s), Denies loss of vision, Denies memory loss, Denies numbness and Denies tingling Psych Denies anxiety, Denies behavioral changes, Denies depression, Denies memory loss and Denies panic attacks Mahesh/Lymph Denies easy bleeding and Denies easy bruising Aller/Immun Denies wheezing Physical exam (Primary Care) Vital Signs: Last Vital Signs Temp 97.3 F 05/18/25 15:27 Oxygen Delivery Method Room Air 05/18/25 15:27 BMI result Body Mass Index 25.8 Tobacco/Smoking Status: Tobacco use Status Tobacco use date assessed 10/22/24 10/22/24 08:24 Patient Tobacco Use Status Never used Tobacco 10/22/24 08:24 e-Cigarette/Vaping Use Never Used 10/22/24 08:24 Thrive Assessment: Date of Thrive Assessment Date Thrive assessed 05/18/25 05/18/25 10:46 Currently or been in a relationship where the following occur: No concerns reported Const Other: Appears thin General: no acute distress, alert and awake Nutritional Appearance: well nourished Orientation/consciousness: oriented to person, oriented to place and oriented to time HENMT Ears: TM's normal bilaterally General nose exam: Normal nasal mucous membranes and turbinates present Eyes Conjunctivae: conjunctivae normal Sclerae: sclerae normal Pupils: Equal, round and reactive pupils present Neck Neck: Yes no lymphadenopathy and Yes no JVD Thyroid: Thyroid normal Carotids: no bruits Chest Chest/axillae images:  1. WELL-HEALED SURGICAL SCAR ON MID CHEST. Resp Effort & Inspection: normal respiratory effort and not tachypneic Auscultation: no crackles, no rales, no rhonchi and no wheezes Cardio Rate: regular rate Rhythm: regular rhythm Heart sounds: no murmurs and normal S1 and S2 GI Palpation (GI): Soft to palpation, nontender, no hepatomegaly and no splenomegaly Auscultation: normal bowel sounds Skin General skin exam: no rashes or lesions noted and dry skin Neuro General: oriented to person, oriented to place and oriented to time Cranial nerves: Yes Equal, round and reactive pupils present Speech: No Abnormal speech present Gait exam (Neuro): Normal gait present Motor exam (neuro): no tremor noted Extrem Right upper extremity: full ROM Left upper extremity: full ROM Right lower extremity: full ROM; no edema Left lower extremity: full ROM; no edema Psych Mental Status: mental status grossly normal Speech and movement: Normal speech and movement present Affect: normal affect Attitude: cooperative Thought process: Normal thought process present Results AMB Hemoglobin A1c AMB Hemoglobin A1c 7.4 % Last Edit by PAUL Marsh on 05/18/25 15:50 Coding Level of Care Code Est Pt Level 4 (09136) Diagnoses S/P CABG x 3 Z95.1 Type 2 diabetes mellitus without complication, without long-term current use of insulin E11.9 Diabetes mellitus lottery sales clerk insulin use: without fdc use Diabetes mellitus complication status: without complication 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 transplanted heart: marshall heart Associated angina: without angina Essential hypertension I10 Hypertension type: essential hypertension Hypothyroidism, unspecified type E03.9 Hypothyroidism type: unspecified Assessment & Plan Assessment & Plan (1) S/P CABG x 3: Code(s): Z95.1 - Presence of aortocoronary bypass graft Category: Surgical Plan: The patient underwent a triple bypass surgery on April 30 and has been recovering well post-surgery. He completed short-term rehabilitation and is adjusting well to being home, with no reported issues in resuming daily activities. He will be starting cardiac rehab shortly. Follow-up with the airplane dispatcher is scheduled in one to two weeks to monitor recovery and manage any ongoing cardiac concerns. (2) DMII (diabetes mellitus, type 2): Code(s): E11.9 - Type 2 diabetes mellitus without complications Category: Medical Qualifiers: Diabetes mellitus lottery sales clerk insulin use: without fdc use Diabetes mellitus complication status: without complication Qualified Code(s): E11.9 - Type 2 diabetes mellitus without complications Plan: Patient has been started on insulin therapy with a insulin glargine 44 units daily and a insulin sliding scale pre prandially. He has been inconsistent with his use of insulin due to not liking needles. He promises to start using at least his long-acting insulin daily. His A1c has improved to 7.4 from 9.1 since starting insulin. A1c to be below 7.0 (3) CVA (cerebral vascular accident): Code(s): I63.9 - Cerebral infarction, unspecified Category: Medical Qualifiers: CVA mechanism: embolism Precerebral and cerebral artery: vertebral artery Laterality of affected vessel: left Qualified Code(s): I63.112 - Cerebral infarction due to embolism of left vertebral artery Plan: As per HPI patient recently had a small CVA affecting his left eye vision. Has followed up with Ophthalmology and was given permission to drive again though no commercial driving. Will continue to risk modify reducing blood pressure, cholesterol and trying to capture glycemic control. Goal LDL to be optimally below 70. (4) CAD (coronary artery disease): Comment: Had coronary catheterization showing 80% blockage of the LAD no intervention at the time Code(s): I25.10 - Atherosclerotic heart disease of marshall coronary artery without angina pectoris Category: Medical Qualifiers: Coronary Disease-Associated Artery/Lesion type: marshall artery [place] vs. transplanted heart: marshall heart Associated angina: without angina Qualified Code(s): I25.10 - Atherosclerotic heart disease of marshall coronary artery without angina pectoris Plan: Patient continues to follow cardiology in [place]. Again in his now status post triple bypass. Most recent lipid panel showing good control of his total cholesterol and LDL. He will continue on Crestor and aspirin for now. Optimal LDL to be below 70. (5) HTN (hypertension): Code(s): I10 - Essential (primary) hypertension Category: Medical Qualifiers: Hypertension type: essential hypertension Qualified Code(s): I10 - Essential (primary) hypertension Plan: Patient's blood pressure today in office acceptable. He is now off of antihypertensive medication. Will consider additional amlodipine if blood pressures above 140/90 (6) Hypothyroidism: Code(s): E03.9 - Hypothyroidism, unspecified Category: Medical Qualifiers: Hypothyroidism type: unspecified Qualified Code(s): E03.9 - Hypothyroidism, unspecified Plan: Patient's most recent TSH stable at 0.7. Will continue his current dose of levothyroxine 75 mcg. Will continue to follow TSH to assure normal. Orders: Orders AMB Hemoglobin A1c Today E11.9 - Type 2 diabetes mellitus without complications Vitamin B12 and Folate Today E53.8 - Deficiency of other specified B group vitamins, Z86.718 - Personal history of other venous thrombosis and embolism Medications: New blood-glucose,parts coordinator,cont (FreeStyle Xander 3 [place]) As directed 1 ea 1RF E11.9 - Type 2 diabetes mellitus without complications blood-glucose sensor ([employer]uscany GardensStyle Xander 3 Sensor device) As directed 2 ea 3RF E11.9 - Type 2 diabetes mellitus without complications insulin aspart U-100 Blood sugar 100-150- take 6 units 151-200 take 8 units 201-250- take 10 units 251-300 take 12 units 301- 350 take 14 units 351-400 take 16 units > 400 take 18 units and call 1 sliding scale dose subcut USEASDIRECTD E11.9 - Type 2 diabetes mellitus without complications
[2025-05-18 15:27] VITALS: BP 130/66; PULSE 80; TEMP 36.3; O2SAT 96; BMI 25.8
--- OUTSIDE RECORDS SUMMARY | 2025-05-18 15:48 | XMS_ITS | Encounter Summary ---
Author Organization [facility] Address [address] [place] [address] Care Team Providers Care Machine Filler Shredder Name Role Phone Tom Collins Primary Care Provider Encounter Details Date Type Department Care Team (Late st Contact Info) Description 05/11/2025 Lab Requisition [facility] - Main Lab [address] [facility] [place] [address] Kerri Simon PA [address] [place] [address] Encounter for other general examination Social History Tobacco Use Types Packs/Day Years Used Date Smoking Tobacco: Former Cigarettes Smokeless Tobacco: Never Comments:Started when he was 13 Alcohol Use Standard Drinks/Week Comments No 0 (1 standard drink = 0.6 oz pur e alcohol) Sex and Gender Information Value Date Recorded Sex Assigned at Not on file Legal Sex Male 5:51 PM EST Gender Identity Not on file Sexual Orientation Not on file documented as of this encounter Plan of Treatment Upcoming Encounters Date Type Department Care Team (Late st Contact Info) Description 06/09/2025 12:40 PM EDT Office Visit [facility] Cardiology [facility] [address] [place] [address] Aleyda Hudson NP [address] [place], [place] [id number] 08/31/2025 8:10 AM EST Office Visit [facility] Cardiology [facility] [place] [address] [place] [address] Brett Bailey NP [address] [place] [address] [address] [place] [address] documented as of this encounter Procedures Procedure Name Priority Date/Time Associated Diagnosis Comments COMPLETE BLOOD COUNT Routine 05/11/2025 4:59 AM EDT Encounter for other general examination documented in this encounter Results * (ABNORMAL) Complete blood count (05/11/2025 4:59 AM EDT) WBC 8.6 4.8 - 10.8 K/mcL LAB HEMETOLOGY METHOD 05/11/2025 8:51 AM [facility] RBC 2.90(L) 4.50 - 5.50 M/mcL LAB HEMETOLOGY METHOD 05/11/2025 8:51 AM [facility] Hemoglobin 8.4(L) 13.5 - 17.5 g/dL LAB HEMETOLOGY METHOD 05/11/2025 8:51 AM [facility] Hematocrit 27.3(L) 42.0 - 54.0 % LAB HEMETOLOGY METHOD 05/11/2025 8:51 AM [facility] MCV 95.5 79.0 - 98.0 FL LAB HEMETOLOGY METHOD 05/11/2025 8:51 AM [facility] MCH 29.4 27.0 - 32.0 pcg LAB HEMETOLOGY METHOD 05/11/2025 8:51 AM [facility] MCHC 30.8(L) 32.0 - 37.0 g/dL LAB HEMETOLOGY METHOD 05/11/2025 8:51 AM [facility] RDW 14.2 11.0 - 15.0 % LAB HEMETOLOGY METHOD 05/11/2025 8:51 AM [facility] Platelets 471(H) 130 - 400 K/mcL LAB HEMETOLOGY METHOD 05/11/2025 8:[address] [facility] MPV 9.3 7.0 - 11.0 FL LAB HEMETOLOGY METHOD 05/11/2025 8:[address] [facility] NRBC 0.0 <1.0 % LAB HEMETOLOGY METHOD 05/11/2025 8:[address] [facility] NRBC Absolute 0.00 <0.10 K/mcL LAB HEMETOLOGY METHOD 05/11/2025 8:[address] [facility] Blood Venous blood specimen / Unknown Venipuncture / Unknown 05/11/2025 4:59 AM EDT 05/11/2025 8:15 AM EDT us Kerri BRADLEY LAB BLOOD ORDERABLES Final Re sult [facility] [address] [place] [address], documented in this encounter Visit Diagnoses Diagnosis Encounter for other general examination documented in this encounter Care Teams Machine Filler Shredder Relationship Specialty Start Date End Date Tom Collins PA [address] [place] [address] PCP - General 04/10/15 documented as of this encounter
--- OUTSIDE RECORDS SUMMARY | 2025-05-18 15:48 | XMS_ITS | Patient Health Record ---
[facility] Address [address] [place] [address] Care Team Providers Care Annealing Oven Operator Name Role Phone Justin Young MD Primary Care Provider Aime hankins Irena Kelly Unavailable [phone] Reason For Referral No Information Medications Medication SIG (Take, Route, Frequency, Duration) Notes Start Date End Date Status Aspirin 81 MG 1 tablet Orally Once a day Active metFORMIN HCl 1000 MG 1 tablet with meal s Orally Twice a day Active hydroCHLOROthiazide 25 MG 1 tablet Orall y Once a day Active Levothyroxine Sodium 75 MCG 1 tablet Ora lly Once a day Active Zantac 150 MG 1 tablet Orally Twic e a day Active Problems Problem Type SNOMED Code ICD Code Onset Dates Problem Status W/U Status Risk Notes Problem Onychomycosis (445874294) Onychomycosis (110.1) Active confirmed Problem Disorder of joint of ankle and/or foot (662567127) Arthritis - Degenerative (719.97) Active confirmed Problem Pain in limb (13028874) Pain in Limb (729.5) Active confirmed Problem Hallux valgus (486885274) Hallux Valgus (735.0) Active confirmed Problem Hammer toe (665693983) Hammer toe (735.4) Active confirmed Problem Arthralgia (22916762) Arthralgia (719.40) Active confirmed Problem Tinea pedis (5993454) Tinea Pedis (110.4) Active confirmed Plan Of Treatment Pending Test Test Name Order Date X ray : Foot, left 3V 09/13/2014 [id number] NAIL, 1-5 02/03/2015 Insurance Providers Payer Name Payer Address Payer Phone Subscriber Number Group Number Insured Name Patient Relationship to Insured Coverage Start Date Coverage End Date [employer] [address] [place] [address] [phone] [id number] Barbra Rush Spouse - patient is the spouse of the insured Medical (General) History Medical History History ICD Code Back,Hip,and Knee pain Diabetes mellitus High blood pressure Thyroid disorder Measles Mumps Chicken pox Joint implants/screws blood clot right leg- 2010 Surgical History Surgery Date(Month/Year) Back
--- OUTSIDE RECORDS SUMMARY | 2025-05-18 15:48 | XMS_ITS ---
Author Name [facility] Organization Unknown Care Team Organization Name Specialty Phone Email Start Date End Da te [facility] Termed, PROVIDER Primary Care 06/20/202305/14
--- OUTSIDE RECORDS SUMMARY | 2025-05-18 15:48 | XMS_ITS | Clinical Summary ---
Author Organization [facility] Address [address] [place] [address] Phone Care Team Providers Care Dry Goods Clerk Name Role Phone Unavailable Primary Care Provider Unavailabl e Allergies Active Allergy Reactions Criticality Noted Date Comments Lisinopril Other (see comments) Low 12/28/2021 Medications amLODIPine (NORVASC) 5 MG tablet Take 5 mg by mouth 10/05/2023 Active aspirin (ST MIGUEL) 81 MG EC tablet Take 1 tablet by mouth 1 (one) time each day Active levothyroxine (SYNTHROID, LEVOTHROID) 75 MCG tablet Take 1 tablet by mouth 1 (one) time each day 05/08/2012 Active metoprolol succinate XL (TOPROL XL) 25 MG 24 hr tablet Take 1 tablet by mouth 1 (one) time each day 10/02/2023 Active Multiple Vitamin (Multivitamin Adult) tablet Take 1 tablet by mouth 1 (one) time each day Active nitroglycerin (NITROSTAT) 0.[address] 0.4 mg under the tongue 02/13/2023 Active rosuvastatin (CRESTOR) 40 MG tablet Take 1 tablet by mouth every night 03/19/2016 Active SITagliptin (Januvia) 25 MG tablet Take 25 mg by mouth 10/05/2023 Active cephalexin (KEFLEX) 500 MG capsule Take 500 mg by mouth in the morning and 500 mg in the evening. 10/07/2023 Active Active Problems Problem Noted Date Diagnosed Date Type 2 diabetes mellitus wit h diabetic chronic kidney disease 10/12/2023 Acute kidney failure 10/11/2023 Stage 3a chronic kidney disease 10/11/2023 Nephrolithiasis 10/10/2023 10/10/2023 Hypertension 11/21/2020 10/10/2023 Overview (10/10/2023): Last Assessment & Plan: His blood pressure is under good control on his current medications. I made no changes to these. He is tolerating these without any issues. He will continue to monitor his blood pressures at home. Resolved Problems Problem Noted Date Diagnosed Date Resolved Date Hypothyroidism 10/10/2023 10/10/2023 10/10/2023 Myocardial infarction 10/10/2023 10/10/20232022 Chest pain 06/18/2023 10/10/2023 10/10/2023 Tachycardia 07/11/2022 10/10/2023 10/10/2023 Overview (10/10/2023): Last Assessment & Plan: We did discuss his most recent episode where he felt unwell and had an elevated blood pressure. He is at risk for arrhythmias. Fortunately has improved with hydration and have encouraged him to continue to stay hydrated. Have asked him to let me know if he has more episodes we can do a Holter monitor to make sure he is not having any arrhythmia. His EKG today is unchanged. Dyspnea 07/09/2022 10/10/2023 10/10/2023 Chronic kidney disease 12/28/2021 10/10/202310/10 Deep venous thrombosis 12/28/202110/10 Type 2 diabetes mellitus 12/28/2021 10/10/2023 Aneurysm of aortic arch 06/21/2021 10/10/202309/14 Overview (10/10/2023): 4.0 cm Last Assessment & Plan: This has been stable. His echocardiogram done in September at [facility] measured this to be 4.1 cm. We will continue to monitor this periodically. Coronary arteriosclerosis 11/21/2020 10/10/2023 Overview (10/10/2023): Last Assessment & Plan: We did discuss his exertional fatigue. We did discuss that this could be a coronary artery equivalent. We did discuss doing a cardiac stress test to evaluate this further. At this point he does not want to pursue this as he does not want an IV. He would need this for his stress test as it would be a chemical test with imaging. He is going to think about this and will let us know if he changes his mind. He will also let us know if he has any significant issues or symptoms or if these worsen. We did discuss using nitroglycerin to see if this helps to improve his symptoms. We also discussed potentially adjusting his antianginal's to see if this made him feel better as well.Cardiac catheterization in 2014 showed diffuse coronary artery disease. LAD had a distal 80% stenosis, OM1 75%, RCA 30%. No intervention was done due to the diffuse nature of the disease and a normal LVEF. He has had no symptoms or issues since then. We will continue to work on diet and exercise low blood pressure and low cholesterol to prevent any progression of this. His ejection fraction has been normal. History of cardiac catheterization 11/21/2020202210/10/2023 Overview (10/10/2023): 04/11/[address] [facility] with Dr. Maged Penny - Significant 2 vessel obstructive coronary disease, with branch vessel disease of a small RI, a small to moderate sized OM1, and the ostium of a moderate sized D2, all of which could represent the culprit vessel. History of non-ST segment el evation myocardial infarction 11/21/2020 10/10/2023 10/10/2023 Overview (10/10/2023): 2015 Hyperlipidemia 11/21/2020 10/10/2023 10/10/2023 Overview (10/10/2023): Last Assessment & Plan: He is doing well on his Crestor. His goal LDL is less than 70.His cholesterol level is under good control on his statin. I have given him a lab slip to update this. His goal LDL is less than 70. He is doing well on his Crestor 40. Immunizations Immunization Administration Dates Next Due Diegoa SARS-COV-2 01/07/2021,12/10/2020 Family History Medical History Relation Comments Heart disease Father Diabetes Mother Relation Status Comments Father Mother Social History Tobacco Use Types Packs/Day Years Used Date Smoking Tobacco: Never Passive Smoke Exposure: Never Smokeless Tobacco: Never Tobacco Cessation:Counseling Given: No Alcohol Use Standard Drinks/Week Comments Never 0 (1 standard drink = 0.6 oz pur e alcohol) Sex and Gender Information Value Date Recorded Sex Assigned at Not on file Legal Sex Male 9:39 AM EST Gender Identity Not on file Sexual Orientation Not on file Last Filed Vital Signs Vital Sign Reading Time Taken Comments Blood Pressure 130/72 10/11/2023 8:58 AM EST Pulse 65 10/11/2023 8:58 AM EST Temperature - - Respiratory Rate - - Oxygen Saturation 96% 10/11/2023 8:58 AM EST Inhaled Oxygen Concentration - - Weight 88 kg (194 lb) 10/11/2023 8:58 AM EST Height - - Body Mass Index - - Plan of Treatment Upcoming Encounters Date Type Department Care Team (Late st Contact Info) Description 08/09/2025 1:30 PM EDT Office Visit [facility] [address] [place] [address] Todd Baez MD [address] [facility] [address] [place] [address] Health Maintenance Due Date Last Done Comments Pneumococcal Vaccine: 50+ Ye ars (1 of 2 - PCV) 1964 Diabetes: Hemoglobin A1C 10/12/2023 Diabetes: Ophthalmology Exam 10/12/2023 Diabetes: Pedal Pulse Checked 10/12/2023 Diabetes: Sensory Foot Exam 10/12/2023 Diabetes: Visual Foot Exam 10/12/2023 Influenza Vaccine (#1) 2025 Hepatitis B Vaccine Aged Out No longe r eligible based on patient's age to complete this topic Insurance Medicare [facility] Medicare [facility]
== END 2025-05-18 16:14 | disposition home or self-care (01) ==
LOC: HO.HMCH 15:20
PROVIDERS: PCP Physician Assistant; Visit Provider Physician Assistant
DX: Z95.1 Presence of aortocoronary bypass graft (principal); E11.9 Type 2 diabetes mellitus without complications; I63.112 Cerebral infarction due to embolism of left vertebral artery; I25.10 Atherosclerotic heart disease of native coronary artery without angina pectoris; I10 Essential (primary) hypertension; E03.9 Hypothyroidism, unspecified

== ENCOUNTER → 2025-05-18 15:19 | Outpatient (BNVA) | payer MEDICARE, SELFPAY | PROVIDERS: PCP Physician Assistant; Visit Provider Physician Assistant | DX: Z95.1 Presence of aortocoronary bypass graft (principal); E11.9 Type 2 diabetes mellitus without complications; I63.112 Cerebral infarction due to embolism of left vertebral artery; I25.10 Atherosclerotic heart disease of native coronary artery without angina pectoris; I10 Essential (primary) hypertension; E03.9 Hypothyroidism, unspecified | CPT/HCPCS: 83036; 99212 ==

== ENCOUNTER 2025-06-03 07:31 | Outpatient (AMB) | payer MEDICARE, SELFPAY ==
--- OUTSIDE RECORDS SUMMARY | 2025-06-03 07:33 | XMS_ITS | Patient Health Record ---
Author Organization [employer] [facility] [employer] [facility] [employer] [facility] Address [address] [place] [address] Care Team Providers Care Sharepoint Application Architect Name Role Phone Justin Young MD Primary Care Provider Aime hankins Irena Kelly Unavailable [phone] Reason For Referral No Information Medications Medication [...] Status W/U Status Risk Notes Problem Onychomycosis (169239430) Onychomycosis (110.1) Active confirmed Problem Disorder of joint of ankle and/or foot (487766332) Arthritis - Degenerative (719.97) Active confirmed Problem Pain in limb (28510895) Pain in Limb (729.5) Active confirmed Problem Hallux valgus (848622489) Hallux Valgus (735.0) Active confirmed Problem Hammer toe (861422377) Hammer toe (735.4) Active confirmed Problem Arthralgia (78007065) Arthralgia (719.40) Active confirmed Problem Tinea pedis (3886445) Tinea Pedis (110.4) Active confirmed Plan Of Treatment Pending Test Test Name Order Date X ray : Foot, left 3V 09/13/2014 [id number], 1-5 02/03/2015 Insurance Providers Payer Name Payer Address Payer Phone Subscriber Number Group Number Insured Name Patient Relationship to Insured Coverage Start Date Coverage End Date [facility] [address] [place] [address] [id number] Barbra Rush Spouse - patient is the spouse of the insured Medical (General) History Medical History History ICD Code Back,Hip,and Knee pain Diabetes mellitus High blood pressure Thyroid disorder Measles Mumps Chicken pox Joint implants/screws blood clot right leg- 2010 Surgical History Surgery Date(Month/Year) Back
--- OUTSIDE RECORDS SUMMARY | 2025-06-03 07:34 | XMS_ITS | Clinical Summary ---
Author Organization [facility] Address [address] [place] [address] Phone Care Team Providers Care Double End Tenoner Setter Name Role Phone Unavailable Primary Care Provider [...] stable. His echocardiogram done in September at [facility] measured this to be 4.1 cm. [...] cardiac catheterization 11/21/2020202210/10/2023 Overview (10/10/2023): 04/11/2015 @ [facility] with Dr. Maged Penny - Significant 2 [...] Visit [facility] [address] [place] [address] Todd Baez MD [address] [facility] [address] [place] [address] Health Maintenance Due Date Last [...] age to complete this topic Insurance Medicare [facility] Medicare [facility]
--- OUTSIDE RECORDS SUMMARY | 2025-06-03 07:34 | XMS_ITS | Encounter Summary ---
Author Organization [facility] Address [address] [place] [address] Care Team Providers Care Building Construction Contractor Name Role Phone Tom Collins Primary Care Provider Encounter Details Date Type Department Care Team (Late st Contact Info) Description 05/11/2025 Lab Requisition [facility] - Main Lab [address] [facility] [place] [address] Kerri Simon PA [address] [place] [address] Encounter for other general examination [...] Description 06/09/2025 12:40 PM EDT Office Visit [facility] [address] [place] [address] Aleyda uHdson NP [address] [place], [place] [id number] 08/31/2025 8:10 AM EST Office Visit [facility] [place] [address] [place] [address] Brett Bailey NP [address] [place] [address] [address] [place] [address] documented as of this encounter Procedures Procedure Name Priority Date/Time Associated Diagnosis Comments COMPLETE BLOOD COUNT Routine 05/11/2025 4:59 AM EDT Encounter for other general examination documented in this encounter Results * (ABNORMAL) Complete blood count (05/11/2025 4:59 AM EDT) WBC 8.6 4.8 - 10.8 K/mcL LAB HEMETOLOGY METHOD 05/11/2025 8:51 AM [facility] RBC 2.90(L) 4.50 - 5.50 M/mcL LAB HEMETOLOGY METHOD 05/11/2025 8:51 AM [facility] Hemoglobin 8.4(L) 13.5 - 17.5 g/dL LAB HEMETOLOGY METHOD 05/11/2025 8:51 AM [facility] Hematocrit 27.3(L) 42.0 - 54.0 % LAB HEMETOLOGY METHOD 05/11/2025 8:51 AM [facility] MCV 95.5 79.0 - 98.0 FL LAB HEMETOLOGY METHOD 05/11/2025 8:51 AM [facility] MCH 29.4 27.0 - 32.0 pcg LAB HEMETOLOGY METHOD 05/11/2025 8:51 AM [facility] MCHC 30.8(L) 32.0 - 37.0 g/dL LAB HEMETOLOGY METHOD 05/11/2025 8:51 AM [facility] RDW 14.2 11.0 - 15.0 % LAB HEMETOLOGY METHOD 05/11/2025 8:51 AM [facility] Platelets 471(H) 130 - 400 K/mcL LAB HEMETOLOGY METHOD 05/11/2025 8:51 AM EDT [facility] MPV 9.3 7.0 - 11.0 FL LAB HEMETOLOGY METHOD 05/11/2025 8:51 AM EDT [facility] NRBC 0.0 <1.0 % LAB HEMETOLOGY METHOD 05/11/2025 8:51 AM EDT [facility] NRBC Absolute 0.00 <0.10 K/mcL LAB HEMETOLOGY METHOD 05/11/2025 8:51 AM EDT [facility] Blood Venous blood specimen / Unknown Venipuncture / Unknown 05/11/2025 4:59 AM EDT 05/11/2025 8:15 AM EDT us Kerri BRADLEY LAB BLOOD ORDERABLES Final Re sult [facility] [address] [place] [address], documented in this encounter Visit Diagnoses Diagnosis Encounter for other general examination documented in this encounter Care Teams Building Construction Contractor Relationship Specialty Start Date End Date Tom Collins PA [address] [place] [address] PCP - General 04/10/15 documented as of this encounter
[2025-06-03 07:36] VITALS: BP 142/84; PULSE 80; TEMP 36.2; O2SAT 100; BMI 26.3
--- NOTE | 2025-06-03 07:36 | MHC.PC.OV ---
Vital Signs 06/03/25 07:36 06/03/25 08:05 Height 5 ft 11 in Weight 188 lb 4 oz BMI 26.3 BP 142/84 H 130/70 Blood Pressure Location Lt brachial Position Sitting Pulse 80 Pulse Source Pulse Oximeter Temp 97.1 F Temp Source Temporal Artery Scan Pulse Oximetry (%) 100 Oxygen Delivery Method Room Air Intake Visit Reasons: DM/ Med review Accompanied by: Spouse Allergies lisinopril Adverse Reaction (Mild, Verified 06/03/25 07:49) Cough Medication List - Last Reconciled 06/03/25 by Tom Collins PA-C amiodarone 200 mg PO DAILY apixaban (Eliquis) 5 mg PO BID aspirin 81 mg PO DAILY blood-glucose sensor (ChangeAgain.MeStyle Xander 3 Plus Sensor device) As directed blood-glucose,tire vulcanizer,cont (FreeStyle Xander 3 [place]) As directed ferrous sulfate (FeroSul) 325 mg PO BID folic acid 1 mg PO DAILY insulin aspart U-100 1 sliding scale dose subcut USEASDIRECTD insulin glargine-yfgn 44 units subcut DAILY levothyroxine 75 mcg PO QAM meclizine 25 mg PO BID PRN 15 days miscellaneous medical supply 1 ea miscellaneous DAILY 99 days multivitamin 1 tab PO DAILY quetiapine (Seroquel) 12.5 mg PO DAILY rosuvastatin (Crestor) 20 mg PO DAILY 90 days Tobacco use date assessed: 06/03/25 Fall risk assessment: No Falls in past year Last assessed Fall Risk: 06/03/25 Dental Screening Dental Screen Date: 06/03/25 Did you have a dental visit in the last 12 months?: Yes Did you have a dental problem in the last 6 months where you did not have access to dental care?: No Was dental information given to patient?: Patient has dentist HPI DM/ Med review HPI Details Rich is a 79 y/o M here today for a follow-up visit. ? 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 The pain is persistent and localized to the lower back, without radiation to the legs. He has not found [id number] medications effective and is considering alternative pain management options. ? .. ? HTN:? Blood pressure today in office acceptable. Blood pressures were reported as stable at home. Will continue his current dose of antihypertensives ? . ? CAD:Is followed by Dr. Gallegos whom he seen couple times per year.? Has had cardiac catheterization in 2014 showing moderate stenosis of the coronary arteries though no stent placement.? Patient underwent a catheterization which showed severe mid LAD stenosis and severe ostial diagonal stenosis in likely severe ostial OM stenosis. Recommendations remain for coronary artery bypass which was done with Dr. Hernandez at [facility]. The patient underwent triple bypass surgery on April 30, performed by Dr. Parker Hernandez. Post-surgery, the patient was in short-term rehabilitation and was discharged last Saturday. He reports no issues adjusting to being home and has resumed activities such as showering independently. He continues on amiodarone 1 tablet daily with hopes to get off of amiodarone over the next month. Has upcoming appointment with Cardiology ? .. ? Type 2 diabetes: Patient is now off of oral antihyperglycemics. The patient has diabetes mellitus and is on insulin therapy, although adherence is inconsistent. He has not been willing to do preprandial insulin due to not liking needles. He has been consistent with the use of his insulin therapy while during his hospitalization and during rehab.. Trying to set patient up with a continues glucose monitor to better understand patient's blood sugars PLAN: Will restart low-dose metformin and Farxiga of and continue his current long-acting insulin.. [facility] Medical History CVA (cerebral vascular accident) Vertigo H/O deep venous thrombosis Surgical History History of open heart surgery History of cervical spinal surgery Family History Father No problems noted. Mother Heart disease Social History Housing: House Alcohol intake: never Patient Tobacco Use Status: Never used Tobacco e-Cigarette/Vaping Use: Never Used Second Hand Smoke Exposure: No service: No Current occupational status: employed Current occupational exposures/hazards: No Cognitive needs: Yes (walker, wheelchair, cane) Hearing needs: No Vision needs: Yes (glasses) Questionnaire PHQ-9 Over the last 2 weeks, how often have you been bothered by any of the following problems? 1. Little interest or pleasure in doing things: not at all 2. Feeling down, depressed, or hopeless: not at all 3. Trouble falling or staying asleep, or sleeping too much: not at all 4. Feeling tired or having little energy: not at all 5. Poor appetite or overeating: not at all 6. Feeling bad about yourself - or that you are a failure or have let yourself or your family down: not at all 7. Trouble concentrating on things, such as reading the newspaper or watching television: not at all 8. Moving or speaking so slowly that other people could have noticed. Or the opposite - being so fidgety or restless that you have been moving around a lot more than usual: not at all 9. Thoughts that you would be better off or of hurting yourself in some way: not at all Total score: 0 Depression Screening Interpretation: Negative Depression Screening Done: Yes 49639 - PHQ-9 Billing: Yes Source: Developed by Drs. Martín Iglesias, Court Page, Valeriano Amado and colleagues, with an educational niesha from [employer]. Thrive Questionnaire Date Thrive assessed: 05/18/25 I am a: Patient What is your living situation today?: I have a steady place to live Within the past 12 months, did the food you bought not last and you didn't have the money to get more?: Never true Within the past 12 months, did you worry whether your food would run out before you got money to buy more?: Never true Do you have trouble paying for medicines?: No Do you have trouble getting transportation to medical appointments?: No Do you have trouble paying your heating and electricity bill?: No Do you have trouble taking care of your child, family member or friend?: No Do you have trouble with day-to-day activities such as bathing, preparing meals, shopping, managing finances, etc.?: No Are you currently unemployed and looking for a job?: No Are you interested in more education?: No Please select the resources that you would like help with: None Currently or been in a relationship where the following occur: No concerns reported THRIVE Score: 0 AUDIT C Alcohol Use Questionnaire (AUDIT-C) 1. How often do you have a drink containing alcohol?: Never 3. How often do you have six or more drinks on one occasion?: Never Total Score: 0 ABDOUL-7 AMB Questionnaire ABDOUL-7 Date ABDOUL - 7 assessed: 05/18/25 Feeling nervous, anxious, or on edge: 0 = Not at all Not being able to stop or control worryin = Not at all Worrying too much about different things: 0 = Not at all Trouble relaxin = Not at all Being so restless that it is hard to sit still: 0 = Not at all Becoming easily annoyed or irritable: 0 = Not at all Feeling afraid as if something awful might happen: 0 = Not at all Total ABDOUL-7 score (0-4 normal; 5-9 mild; 10-14 moderate; 15-21 severe): 0 Source: Developed by Drs. Martín Iglesias, Court Page, Valeriano Amado and colleagues, with an educational niesha from [employer]. Review of Systems Const Denies headache(s) Eyes Denies loss of vision ENT Denies vertigo, Denies dizziness, Denies headache(s) and Denies sore throat Card Denies chest pain, Denies leg edema and Denies lightheadedness Resp Denies cough, Denies hemoptysis and Denies wheezing GI Denies abdominal pain, Denies melena, Denies constipation, Denies diarrhea and Denies vomiting Denies dysuria, Denies urinary frequency and Denies urinary urgency Musc Denies arthralgias, Denies joint swelling, Denies numbness and Denies tingling Neuro Denies Abnormal speech present, Denies behavioral changes, Denies vertigo, Denies dizziness, Denies headache(s), Denies loss of vision, Denies memory loss, Denies numbness and Denies tingling Psych Denies anxiety, Denies behavioral changes, Denies depression, Denies memory loss and Denies panic attacks Mahesh/Lymph Denies easy bleeding and Denies easy bruising Aller/Immun Denies wheezing Physical exam (Primary Care) Vital Signs: Last Vital Signs Temp 97.1 F 06/03/25 07:36 Pulse 80 06/03/25 07:36 BP 142/84 H 06/03/25 07:36 Pulse Ox 100 06/03/25 07:36 Oxygen Delivery Method Room Air 06/03/25 07:36 BMI result Body Mass Index 26.3 Tobacco/Smoking Status: Tobacco use Status Tobacco use date assessed 06/03/25 06/03/25 07:37 Patient Tobacco Use Status Never used Tobacco 06/03/25 07:37 e-Cigarette/Vaping Use Never Used 06/03/25 07:37 PHQ-9: PHQ-9 Score PHQ-9: Total score 0 06/03/25 07:49 Depression Screening Interpretation: Negative Thrive Assessment: Date of Thrive Assessment Date Thrive assessed 05/18/25 06/03/25 07:37 Currently or been in a relationship where the following occur: No concerns reported Const General: healthy appearing, no acute distress, alert and awake Nutritional Appearance: well nourished Orientation/consciousness: oriented to person, oriented to place and oriented to time HENMT Ears: TM's normal bilaterally General nose exam: Normal nasal mucous membranes and turbinates present Eyes Conjunctivae: conjunctivae normal Sclerae: sclerae normal Pupils: Equal, round and reactive pupils present Neck Neck: Yes no lymphadenopathy and Yes no JVD Thyroid: Thyroid normal Carotids: no bruits Resp Effort & Inspection: normal respiratory effort and not tachypneic Auscultation: no crackles, no rales, no rhonchi and no wheezes Cardio Rate: regular rate Rhythm: regular rhythm Heart sounds: no murmurs and normal S1 and S2 GI Palpation (GI): Soft to palpation, nontender, no hepatomegaly and no splenomegaly Auscultation: normal bowel sounds Skin General skin exam: no rashes or lesions noted and dry skin Neuro General: oriented to person, oriented to place and oriented to time Cranial nerves: Yes Equal, round and reactive pupils present Speech: No Abnormal speech present Gait exam (Neuro): Normal gait present Motor exam (neuro): no tremor noted Extrem Right upper extremity: full ROM Left upper extremity: full ROM Right lower extremity: full ROM; no edema Left lower extremity: full ROM; no edema Psych Mental Status: mental status grossly normal Speech and movement: Normal speech and movement present Affect: normal affect Attitude: cooperative Thought process: Normal thought process present Coding Level of Care Code Est Pt Level 4 (99434) Diagnoses S/P CABG x 3 Z95.1 Type 2 diabetes mellitus without complication, without long-term current use of insulin 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 transplanted heart: [place] heart Associated angina: without angina Essential hypertension I10 Hypertension type: essential hypertension Chronic midline low back pain without sciatica M54.50; G89.29 Chronicity: chronic Back pain laterality: midline Sciatica presence: without sciatica Additional Codes PHQ-9 - 96970 - PHQ-9 Billing: Yes ([id number]) Assessment & Plan Assessment & Plan (1) S/P CABG x 3: Code(s): Z95.1 - Presence of aortocoronary bypass graft Category: Surgical Plan: The patient underwent a triple bypass surgery on April 30 and has been recovering well post-surgery. He will be starting cardiac rehab shortly. Does have home visiting nurses whom are assessing him regularly. (2) DMII (diabetes mellitus, type 2): Code(s): E11.9 - Type 2 diabetes mellitus without complications Category: Medical Qualifiers: Diabetes mellitus retirement insulin use: without marine oil terminal superintendent use Diabetes mellitus complication status: without complication Qualified Code(s): E11.9 - Type 2 diabetes mellitus without complications Plan: The plan for managing Type 2 Diabetes Mellitus includes transitioning to a once-daily long-acting insulin regimen, supplemented with oral metformin and Farxiga. The patient will continue to monitor blood glucose levels with the aid of a sensor once available. Dietary modifications focusing on carbohydrate reduction were discussed to aid in glycemic control. A1c to be below 7.0 (3) CAD (coronary artery disease): Comment: Had coronary catheterization showing 80% blockage of the LAD no intervention at the time Code(s): I25.10 - Atherosclerotic heart disease of [place] coronary artery without angina pectoris Category: Medical Qualifiers: Coronary Disease-Associated Artery/Lesion type: [place] artery [place] vs. transplanted heart: [place] heart Associated angina: without angina Qualified Code(s): I25.10 - Atherosclerotic heart disease of [place] coronary artery without angina pectoris Plan: Patient continues to follow cardiology in [place]. Status post coronary artery bypass 04/2025 Most recent lipid panel showing good control of his total cholesterol and LDL. He will continue on Crestor and aspirin for now. Optimal LDL to be below 70. (4) HTN (hypertension): Code(s): I10 - Essential (primary) hypertension Category: Medical Qualifiers: Hypertension type: essential hypertension Qualified Code(s): I10 - Essential (primary) hypertension Plan: Patient's blood pressure today in office acceptable. He is now off of antihypertensive medication. Will consider additional amlodipine if blood pressures above 140/90 (5) Low back pain: Code(s): M54.50 - Low back pain, unspecified Category: Medical Qualifiers: Chronicity: chronic Back pain laterality: midline Sciatica presence: without sciatica Qualified Code(s): M54.50 - Low back pain, unspecified; G89.29 - Other chronic pain Plan: For chronic lower back pain, the patient will be prescribed lidocaine patches and Baclofen as needed for muscle relaxation. An x-ray has been ordered to assess for any underlying structural issues. Orders: Orders XR lumbar spine 4V min Today G89.29 - Other chronic pain, M54.50 - Low back pain, unspecified Medications: New pen needle, diabetic As directed 50 ea 6RF E11.9 - Type 2 diabetes mellitus without complications dapagliflozin propanediol (Farxiga) 10 mg PO DAILY 90 tabs 1RF E11.9 - Type 2 diabetes mellitus without complications metformin ER (Glucophage XR) 500 mg PO DAILY 90 tabs 1RF 90 days E11.9 - Type 2 diabetes mellitus without complications lidocaine 5% leave on most painful area for up to 12 hrs 1 patch topical DAILY 30 ea 3RF 30 days G89.29 - Other chronic pain, M54.50 - Low back pain, unspecified baclofen 10 mg PO DAILY PRN 10 tabs 0RF muscle spasm 10 days G89.29 - Other chronic pain, M54.50 - Low back pain, unspecified Changed From quetiapine (Seroquel) 12.5 mg PO DAILY G47.00 - Insomnia, unspecified To quetiapine (Seroquel) 25 mg PO DAILY 90 tabs 1RF 90 days G47.00 - Insomnia, unspecified From insulin glargine-yfgn 44 units subcut DAILY E11.9 - Type 2 diabetes mellitus without complications To insulin glargine-yfgn 44 units (0.44 mL) subcut DAILY 15 mL 3RF 30 days E11.9 - Type 2 diabetes mellitus without complications
[2025-06-03 08:05] VITALS: BP 130/70
--- OUTSIDE RECORDS SUMMARY | 2025-07-16 20:00 | XMS_ITS | Clinical Summary ---
Author Organization Unknown Care Team Providers Care Mechanical Product Design Engineer Name Role Phone KAM ANTUNEZ Unavailable Unavailable MARIA A RN, MAHSA Unavailable Unavailable JASON ([facility]) [facility] - PT, SONDRA Unavailable Unavailable LARISA ([facility]) [facility] - MECHANICAL ESTIMATOR, MILADY Unavailable Un available [employer] ASSOCIATE CURATOR, GEORGINA Unavailable Unavai lable Payers Payer Name Policy Type Policy Number Effective Date Expira tion Date MEDICARE - [facility] - PD [id number] Problems Condition Name Condition Details Condition Category Status Onset Date Resolution Date Last Treatment Date Treating Clinician Comments ENCNTR FOR SURGICAL AFTCR FOLLOWING SURGERY ON THE [facility] Active 04-30 00:00: 00 Allergies, Adverse Reactions, Alerts Allergy Name Allergy Type Status Severity Reaction(s) Onset Date Inactive Date Treating Clinician Comments LISINOPRIL Propensity to adverse reactions Active 05-19 19:46: 01 Immunizations Ordered Immunization Name Filled Immunization Name Date Status Comments Refusal Reason REFUSED FLU, PPV 2025-05-19 00:00:00 Vital Signs Vital Name Observation Time Observation Value Commen ts Temperature 2025-06-01 11:12:00.000 97.4 [degF] Temperature 2025-05-29 12:44:00.000 97.4 [degF] Temperature 2025-05-26 09:11:00.000 97.9 [degF] Temperature 2025-05-25 11:45:00.000 97.4 [degF] Temperature 2025-05-20 14:11:00.000 97.8 [degF] Temperature 2025-05-19 11:04:00.000 98 [degF] BMI (%) 2025-05-19 11:04:00.000 25 kg/m2 Height 2025-05-19 11:04:00.000 72 [in_us] Pulse 2025-06-01 11:12:00.000 74 /min Pulse 2025-05-29 12:44:00.000 76 /min Pulse 2025-05-26 09:11:00.000 74 /min Pulse 2025-05-25 11:45:00.000 74 /min Pulse 2025-05-20 14:11:00.000 79 /min Pulse 2025-05-19 11:04:00.000 76 /min O2 Saturation (%) 2025-05-26 09:11:00.000 99 % O2 Saturation (%) 2025-05-19 11:04:00.000 97 % Respirations 2025-06-01 11:12:00.000 18 /min Respirations 2025-05-29 12:44:00.000 20 /min Respirations 2025-05-26 09:11:00.000 18 /min Respirations 2025-05-25 11:45:00.000 18 /min Respirations 2025-05-20 14:11:00.000 16 /min Respirations 2025-05-19 11:04:00.000 18 /min Weight (lbs) 2025-05-19 11:04:00.000 189 [lb_av] Systolic Blood Pressure 2025-06-01 11:12:00.000 118 mm [Hg] Systolic Blood Pressure 2025-05-29 12:44:00.000 132 mm [Hg] Systolic Blood Pressure 2025-05-26 09:11:00.000 108 mm [Hg] Systolic Blood Pressure 2025-05-25 11:45:00.000 128 mm [Hg] Systolic Blood Pressure 2025-05-20 14:11:00.000 128 mm [Hg] Systolic Blood Pressure 2025-05-19 11:04:00.000 112 mm [Hg] Diastolic Blood Pressure 2025-06-01 11:12:00.000 76 mm [Hg] Diastolic Blood Pressure 2025-05-29 12:44:00.000 72 mm [Hg] Diastolic Blood Pressure 2025-05-26 09:11:00.000 64 mm [Hg] Diastolic Blood Pressure 2025-05-25 11:45:00.000 80 mm [Hg] Diastolic Blood Pressure 2025-05-20 14:11:00.000 73 mm [Hg] Diastolic Blood Pressure 2025-05-19 11:04:00.000 62 mm [Hg] Plan of Treatment Planned Activity Planned Date Details Comments Future Scheduled Test SKILLED NU RSE TO EVALUATE PATIENT, IDENTIFY PRIMARY AND CO-MORBID CONDITIONS CODED PER CODING GUIDELINES, AND DEVELOP PATIENT SPECIFIC PLAN OF CARE THAT INCLUDES PATIENT GOAL FOR HOME HEALTH. [code = SKILLED NURSE TO EVALUATE PATIENT, IDENTIFY PRIMARY AND CO-MORBID CONDITIONS CODED PER CODING GUIDELINES, AND DEVELOP PATIENT SPECIFIC PLAN OF CARE THAT INCLUDES PATIENT GOAL FOR HOME HEALTH.] Future Scheduled Test SKILLED NU RSE TO REVIEW PATIENT MEDICATIONS (PRESCRIPTION/OTC). INSTRUCT PATIENT/CAREGIVER ON ALL MEDICATIONS INCLUDING PURPOSE, WHEN TO TAKE, IMPORTANCE OF MEDICATION ADHERENCE, MONITORING OF EFFECTIVENESS, ADVERSE DRUG REACTIONS, POSSIBLE SIDE EFFECTS, AND WHEN TO NOTIFY AGENCY OR PHYSICIAN/PROVIDER OF ANY CONCERNS. [code = SKILLED NURSE TO REVIEW PATIENT MEDICATIONS (PRESCRIPTION/OTC). INSTRUCT PATIENT/CAREGIVER ON ALL MEDICATIONS INCLUDING PURPOSE, WHEN TO TAKE, IMPORTANCE OF MEDICATION ADHERENCE, MONITORING OF EFFECTIVENESS, ADVERSE DRUG REACTIONS, POSSIBLE SIDE EFFECTS, AND WHEN TO NOTIFY AGENCY OR PHYSICIAN/PROVIDER OF ANY CONCERNS.] Future Scheduled Test PATIENT SUAREZ S A RISK OF HOSPITALIZATION AND ED USE. SKILLED NURSE TO ESTABLISH SUPPORT MEASURES TO MINIMIZE RISK OF HOSPITALIZATION AND ED USE, AND INSTRUCT PATIENT/CAREGIVER ON METHODS TO REDUCE AVOIDABLE HOSPITALIZATION AND ED USE. [code = PATIENT HAS A RISK OF HOSPITALIZATION AND ED USE. SKILLED NURSE TO ESTABLISH SUPPORT MEASURES TO MINIMIZE RISK OF HOSPITALIZATION AND ED USE, AND INSTRUCT PATIENT/CAREGIVER ON METHODS TO REDUCE AVOIDABLE HOSPITALIZATION AND ED USE.] Future Scheduled Test SKILLED NU RSE TO PROVIDE INSTRUCTION TO PATIENT/CAREGIVER RELATED TO DISCHARGE PLANNING. [code = SKILLED NURSE TO PROVIDE INSTRUCTION TO PATIENT/CAREGIVER RELATED TO DISCHARGE PLANNING.] Future Scheduled Test SKILLED NU RSE TO PERFORM ENVIRONMENTAL SAFETY RISK ASSESSMENT AND FALL RISK ASSESSMENT AND PROVIDE INSTRUCTION TO IMPLEMENT ENVIRONMENTAL SAFETY AND FALL PREVENTION STRATEGIES THROUGHOUT THE CERTIFICATION PERIOD. SKILLED NURSE WILL MAINTAIN SITUATIONAL AWARENESS AND WILL NOTIFY CLINICAL [place] SECURITY PROGRAM SPECIALIST AND PHYSICIAN/PROVIDER WITH ANY CHANGE IN CONDITION. [code = SKILLED NURSE TO PERFORM ENVIRONMENTAL SAFETY RISK ASSESSMENT AND FALL RISK ASSESSMENT AND PROVIDE INSTRUCTION TO IMPLEMENT ENVIRONMENTAL SAFETY AND FALL PREVENTION STRATEGIES THROUGHOUT THE CERTIFICATION PERIOD. SKILLED NURSE WILL MAINTAIN SITUATIONAL AWARENESS AND WILL NOTIFY CLINICAL [place] SECURITY PROGRAM SPECIALIST AND PHYSICIAN/PROVIDER WITH ANY CHANGE IN CONDITION.] Future Scheduled Test SKILLED NU RSE FOR OBSERVATION AND ASSESSMENT OF PATIENTS PAIN LEVEL AND EFFECTIVENESS OF PAIN MANAGEMENT REGIMEN. SKILLED NURSE TO INSTRUCT PATIENT/CAREGIVER REGARDING PHARMACOLOGIC AND NON-PHARMACOLOGIC PAIN CONTROL MEASURES. SKILLED NURSE TO REPORT TO PHYSICIAN IF PAIN LEVEL IS OUTSIDE OF ESTABLISHED PARAMETERS. [code = SKILLED NURSE FOR OBSERVATION AND ASSESSMENT OF PATIENTS PAIN LEVEL AND EFFECTIVENESS OF PAIN MANAGEMENT REGIMEN. SKILLED NURSE TO INSTRUCT PATIENT/CAREGIVER REGARDING PHARMACOLOGIC AND NON-PHARMACOLOGIC PAIN CONTROL MEASURES. SKILLED NURSE TO REPORT TO PHYSICIAN IF PAIN LEVEL IS OUTSIDE OF ESTABLISHED PARAMETERS.] Future Scheduled Test SKILLED NU RSE TO ASSESS PATIENT'S SKIN INTEGRITY AND INSTRUCT PATIENT/CAREGIVER ON MEASURES TO PREVENT PRESSURE ULCERS. [code = SKILLED NURSE TO ASSESS PATIENT'S SKIN INTEGRITY AND INSTRUCT PATIENT/CAREGIVER ON MEASURES TO PREVENT PRESSURE ULCERS.] Future Scheduled Test SKILLED NU RSE TO ASSESS HOME SAFETY FOR PATIENT WITH IMPAIRED VISION AND INSTRUCT PATIENT/CAREGIVER ON SAFETY TECHNIQUES FOR ADLS AND IADLS, MEDICATION MANAGEMENT, AND HOME ADAPTATION. [code = SKILLED NURSE TO ASSESS HOME SAFETY FOR PATIENT WITH IMPAIRED VISION AND INSTRUCT PATIENT/CAREGIVER ON SAFETY TECHNIQUES FOR ADLS AND IADLS, MEDICATION MANAGEMENT, AND HOME ADAPTATION.] Future Scheduled Test SKILLED NU RSE FOR O/A AND SKILLED TEACHING RELATED TO ALTERED SKIN INTEGRITY [code = SKILLED NURSE FOR O/A AND SKILLED TEACHING RELATED TO ALTERED SKIN INTEGRITY ] Future Scheduled Test SKILLED NU RSE FOR O/A, TEACHING, AND MANAGEMENT OF POST CABG X3 [code = SKILLED NURSE FOR O/A, TEACHING, AND MANAGEMENT OF POST CABG X3] Future Scheduled Test SKILLED NU RSE TO INSTRUCT PATIENT/CAREGIVER ON SIGNS AND SYMPTOMS, RISK FACTORS, COMPLICATIONS, AND MANAGEMENT OF ATRIAL FIBRILLATION. [code = SKILLED NURSE TO INSTRUCT PATIENT/CAREGIVER ON SIGNS AND SYMPTOMS, RISK FACTORS, COMPLICATIONS, AND MANAGEMENT OF ATRIAL FIBRILLATION.] Future Scheduled Test SKILLED NU RSE FOR O/A OF SELF-CARE DEFICITS AND TO PROVIDE TEACHING RELATED TO SAFE PROVISION OF ADLS. [code = SKILLED NURSE FOR O/A OF SELF-CARE DEFICITS AND TO PROVIDE TEACHING RELATED TO SAFE PROVISION OF ADLS.] Future Scheduled Test SKILLED NU RSE FOR O/A AND SKILLED TEACHING RELATED TO SIGNS AND SYMPTOMS OF INFECTION AND INFECTION CONTROL MEASURES. [code = SKILLED NURSE FOR O/A AND SKILLED TEACHING RELATED TO SIGNS AND SYMPTOMS OF INFECTION AND INFECTION CONTROL MEASURES.] Future Scheduled Test PHYSICAL T HERAPIST TO EVALUATE PATIENT FOR GAIT STABILITY AND STRENGTH [code = PHYSICAL THERAPIST TO EVALUATE PATIENT FOR GAIT STABILITY AND STRENGTH ] Future Scheduled Test SKILLED NU RSE FOR O/A AND TEACHING OF DIABETIC MANAGEMENT INCLUDING BLOOD SUGAR MONITORING/USE OF GLUCOMETER, DIABETIC DIET, LOWER EXTREMITY SKIN INSPECTION, PROPER SKIN/FOOT CARE, AND SIGNS AND SYMPTOMS HYPO/HYPERGLYCEMIA TO REPORT. [code = SKILLED NURSE FOR O/A AND TEACHING OF DIABETIC MANAGEMENT INCLUDING BLOOD SUGAR MONITORING/USE OF GLUCOMETER, DIABETIC DIET, LOWER EXTREMITY SKIN INSPECTION, PROPER SKIN/FOOT CARE, AND SIGNS AND SYMPTOMS HYPO/HYPERGLYCEMIA TO REPORT.] Future Scheduled Test PHYSICAL T HERAPIST TO EVALUATE PATIENT SECONDARY TO FUNCTIONAL DEFICITS/SAFETY CONCERNS. PHYSICAL THERAPY TO ESTABLISH /UPGRADE/DOWNGRADE THERAPEUTIC EXERCISE PROGRAM AND INSTRUCT PATIENT/CAREGIVER ON EXERCISE PRECAUTIONS WITH WRITTEN HOME PROGRAM. MAY INCLUDE PROM, AAROM, AROM, RROM APPROPRIATE TO IMPROVE FUNCTIONAL STRENGTH AND RANGE OF MOTION. PHYSICAL THERAPY TO INSTRUCT PATIENT/CAREGIVER ON GAIT TRAINING TECHNIQUES USING APPROPRIATE ASSISTIVE DEVICE, PROPER BODY MECHANICS TO IMPROVE MOBILITY, AND PREVENT INJURY OF PATIENT AND/OR CAREGIVER. PHYSICAL THERAPY TO ASSESS AND RECOMMEND HOME SAFETY ADAPTATIONS AND EDUCATE PATIENT /CAREGIVER ON FALL PREVENTION STRATEGIES. PHYSICAL THERAPY FOR OBSERVATION AND ASSESSMENT OF PAIN, EFFECTIVENESS OF PAIN MANAGEMENT REGIMEN AND SKILLED TEACHING RELATED TO PAIN MANAGEMENT. THERAPIST TO REPORT INCREASED PAIN LEVEL TO PHYSICIAN FOR PROMPT INTERVENTION. SUMMARY OF THERAPY EVAL/ASSESSMENT FINDINGS AND REASON(S) SKILLS OF A THERAPIST ARE INDICATED: PATIENT REFERRED STATUS POST C A B G X 3. 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 PATIENTS BASELINE WAS INDEPENDENT RETIRED. PATIENTS GOAL IS TO REHAB HEART. PATIENT IS ALERT AND ORIENTATED TIMES FOUR. HE STANDS SIX FEET TALL WITH A WEIGHT OF 187 LB. PATIENT COMPLAINS OF MILD INCISION PAIN REACHING 4 OUT OF 10. PATIENT REQUIRES ASSISTANCE TIMES ONE FOR ADL AND IADL CARE. RESTING BLOOD PRESSURE 128 / 73 HR79 TEMP 97.8 02 SATURATION 98%. LOTS OF VISION LEFT EYE. NO SIGNIFICANT EXTREMITY EDEMA. INCISION HEALING REPORTS GRAPH SITE LEFT EYE HEMATOMA BEING FOLLOWED BY NURSING. POSTURE IS WITHIN FUNCTIONAL LIMITS. HE HAS LIMITED OVERHEAD REACHING DUE TO CARDIAC PRECAUTIONS. BILATERAL LOWER EXTREMITY STRENGTH FAIR ANTONIO. TRANSFERS CONTACT GUARD AMBULATING FRONT WHEEL WALKER INITIATE GAIT TRAINING TO CANE THIS VISIT. TOLERATED 2 MINUTE WALK WITH 6 MINUTE WALK TEST. POST VITAL SIGNS WITHIN NORMAL LIMITS HEART RATE 88. WILL BENEFIT FROM SHORT-TERM HOME THERAPY TO ADDRESS CARDIO POST-OP CARE WALKING PROGRAM EXERCISE BIKE WILL START CARDIAC REHAB May. PATIENT AGREES WITH PLAN OF CARE. [code = PHYSICAL THERAPIST TO EVALUATE PATIENT SECONDARY TO FUNCTIONAL DEFICITS/SAFETY CONCERNS. PHYSICAL THERAPY TO ESTABLISH /UPGRADE/DOWNGRADE THERAPEUTIC EXERCISE PROGRAM AND INSTRUCT PATIENT/CAREGIVER ON EXERCISE PRECAUTIONS WITH WRITTEN HOME PROGRAM. MAY INCLUDE PROM, AAROM, AROM, RROM APPROPRIATE TO IMPROVE FUNCTIONAL STRENGTH AND RANGE OF MOTION. PHYSICAL THERAPY TO INSTRUCT PATIENT/CAREGIVER ON GAIT TRAINING TECHNIQUES USING APPROPRIATE ASSISTIVE DEVICE, PROPER BODY MECHANICS TO IMPROVE MOBILITY, AND PREVENT INJURY OF PATIENT AND/OR CAREGIVER. PHYSICAL THERAPY TO ASSESS AND RECOMMEND HOME SAFETY ADAPTATIONS AND EDUCATE PATIENT /CAREGIVER ON FALL PREVENTION STRATEGIES. PHYSICAL THERAPY FOR OBSERVATION AND ASSESSMENT OF PAIN, EFFECTIVENESS OF PAIN MANAGEMENT REGIMEN AND SKILLED TEACHING RELATED TO PAIN MANAGEMENT. THERAPIST TO REPORT INCREASED PAIN LEVEL TO PHYSICIAN FOR PROMPT INTERVENTION. SUMMARY OF THERAPY EVAL/ASSESSMENT FINDINGS AND REASON(S) SKILLS OF A THERAPIST ARE INDICATED: PATIENT REFERRED STATUS POST C A B G X 3. 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 PATIENTS BASELINE WAS INDEPENDENT RETIRED. PATIENTS GOAL IS TO REHAB HEART. PATIENT IS ALERT AND ORIENTATED TIMES FOUR. HE STANDS SIX FEET TALL WITH A WEIGHT OF 187 LB. PATIENT COMPLAINS OF MILD INCISION PAIN REACHING 4 OUT OF 10. PATIENT REQUIRES ASSISTANCE TIMES ONE FOR ADL AND IADL CARE. RESTING BLOOD PRESSURE 128 / 73 HR79 TEMP 97.8 02 SATURATION 98%. LOTS OF VISION LEFT EYE. NO SIGNIFICANT EXTREMITY EDEMA. INCISION HEALING REPORTS GRAPH SITE LEFT EYE HEMATOMA BEING FOLLOWED BY NURSING. POSTURE IS WITHIN FUNCTIONAL LIMITS. HE HAS LIMITED OVERHEAD REACHING DUE TO CARDIAC PRECAUTIONS. BILATERAL LOWER EXTREMITY STRENGTH FAIR ANTONIO. TRANSFERS CONTACT GUARD AMBULATING FRONT WHEEL WALKER INITIATE GAIT TRAINING TO CANE THIS VISIT. TOLERATED 2 MINUTE WALK WITH 6 MINUTE WALK TEST. POST VITAL SIGNS WITHIN NORMAL LIMITS HEART RATE 88. WILL BENEFIT FROM SHORT-TERM HOME THERAPY TO ADDRESS CARDIO POST-OP CARE WALKING PROGRAM EXERCISE BIKE WILL START CARDIAC REHAB May. PATIENT AGREES WITH PLAN OF CARE.] Goal Patient Goal - WALK WITHOUT WALKER Goal Provider Goal - A PLAN OF CARE WILL BE ESTABLISHED THAT MEETS PATIENT'S [facility] NEEDS AND INCLUDES PATIENT GOAL FOR HOME HEALTH. Goal Provider Goal - PATIENT/CAREGIVER WILL VERBALIZE UNDERSTANDING OF EDUCATION PROVIDED ON MEDICATIONS BY THE END OF THE CERTIFICATION PERIOD. Goal Provider Goal - PATIENT WILL HAVE SUPPORT MEASURES ESTABLISHED TO PREVENT HOSPITALIZATION AND ED USE AND PATIENT/CAREGIVER WILL VERBALIZE/DEMONSTRATE METHODS TO REDUCE AVOIDABLE HOSPITALIZATION AND ED USE BY END OF EPISODE. Goal Provider Goal - PATIENT/CAREGIVER WILL VERBALIZE UNDERSTANDING OF DISCHARGE PLANNING INSTRUCTIONS BY DATE OF DISCHARGE. Goal Provider Goal - PATIENT/CAREGIVER WILL VERBALIZE/DEMONSTRATE EFFECTIVE ENVIRONMENTAL SAFETY AND FALL PREVENTION STRATEGIES, WILL REMAIN SAFE IN THE COMMUNITY, AND WILL BE FREE OF DANGER TO SELF AND OTHERS THROUGHOUT THE CERTIFICATION PERIOD. Goal Provider Goal - PATIENT/CAREGIVER WILL DEMONSTRATE UNDERSTANDING OF PHARMACOLOGIC AND NONPHARMACOLOGIC PAIN CONTROL MEASURES AND PATIENT WILL HAVE IMPROVEMENT IN PAIN INTERFERING WITH ACTIVITY EVIDENCED BY PAIN AT A LEVEL THAT IS ACCEPTABLE TO THE PATIENT AND PAIN LEVEL WITHIN ESTABLISHED PARAMETERS BY END OF CERTIFICATION PERIOD. Goal Provider Goal - PATIENT/CAREGIVER WILL VERBALIZE UNDERSTANDING OF PRESSURE ULCER PREVENTION BY END OF THE EPISODE. Goal Provider Goal - PATIENT/CAREGIVER WILL BE ABLE TO APPLY PRINCIPLES OF ENVIRONMENTAL MODIFICATION TO MAINTAIN THE LEVEL OF SAFETY FOR THE LOW VISION PATIENT WITHIN THE HOME SETTING AND PREVENT FALL/INJURY THIS EPISODE Goal Provider Goal - PATIENT/CAREGIVER WILL VERBALIZE/DEMONSTRATE UNDERSTANDING OF TEACHING RELATED TO ALTERED SKIN INTEGRITY BY END OF CERTIFICATION PERIOD. Goal Provider Goal - PATIENT/CAREGIVER WILL VERBALIZE/DEMONSTRATE MANAGEMENT OF CARDIAC DISEASE PROCESS AND EXACERBATIONS WILL BE IDENTIFIED AND PROMPTLY REPORTED THROUGHOUT THE CERTIFICATION PERIOD. Goal Provider Goal - PATIENT/CAREGIVER WILL VERBALIZE UNDERSTANDING OF SIGNS AND SYMPTOMS, COMPLICATIONS, AND MANAGEMENT OF ATRIAL FIBRILLATION THROUGHOUT THE CERTIFICATION PERIOD. Goal Provider Goal - PATIENT/CAREGIVER WILL VERBALIZE/DEMONSTRATE UNDERSTANDING OF SAFE PROVISION OF ADLS BY THE END OF THE CERTIFICATION PERIOD. Goal Provider Goal - PATIENT/CAREGIVER WILL VERBALIZE/DEMONSTRATE UNDERSTANDING OF S/S OF INFECTION AND INFECTION CONTROL MEASURES. SIGNS AND SYMPTOMS OF INFECTION WILL BE IDENTIFIED AND PHYSICIAN NOTIFIED FOR PROMPT INTERVENTION THROUGHOUT THE CERTIFICATION PERIOD. Goal Provider Goal - A PHYSICAL THERAPY EVALUATION TO BE COMPLETED WITH RECOMMENDATIONS AND/OR WRITTEN PLAN OF TREATMENT ESTABLISHED FOR PHYSICIANS SIGNATURE. Goal Provider Goal - PATIENT/CAREGIVER WILL VERBALIZE/DEMONSTRATE KNOWLEDGE OF DIABETIC MANAGEMENT. CHANGES IN DIABETIC STATUS WILL BE IDENTIFIED AND REPORTED TO PHYSICIAN FOR PROMPT INTERVENTION THROUGHOUT THE CERTIFICATION PERIOD. Goal Provider Goal - PHYSICAL THERAPY EVALUATION TO BE COMPLETED WITH RECOMMENDATIONS AND/OR WRITTEN TREATMENT PLAN OF CARE ESTABLISHED FOR THE PHYSICIANS SIGNATURE PATIENT/CAREGIVER WILL PERFORM THERAPEUTIC EXERCISE/S AND DEMONSTRATE PARTICIPATION IN A HOME PROGRAM. PATIENT/CAREGIVER WILL DEMONSTRATE IMPROVED GAIT TECHNIQUES TO MINIMIZE RISK OF INJURY. PATIENT/CAREGIVER WILL DEMONSTRATE/VERBALIZE UNDERSTANDING OF RECOMMENDATIONS TO INCREASE SAFETY IN THE HOME AND FALL PREVENTION. INCREASED PAIN OR INEFFECTIVE PAIN CONTROL MEASURES WILL BE IDENTIFIED AND PROMPTLY REPORTED TO THE PHYSICIAN. PATIENT/CAREGIVER WILL DEMONSTRATE EFFECTIVE PAIN MANAGEMENT. Encounters Start Date/Time End Date/Time Encounter Type Admission Type Attending Clinicians Care Facility Care Department Encounter ID Discharge Date Discharge Status Discharge Condition Discharge Reason Percent Goals Met 2025-05-19 00:00:00 2025-07-17 00:00:00 Outpatient NEW ADMISSION MAHSA SAHA [facility] [id number] 25.71
== END 2025-06-03 08:17 | disposition home or self-care (01) ==
LOC: HO.HMCH 07:31
PROVIDERS: PCP Physician Assistant; Visit Provider Physician Assistant
DX: Z95.1 Presence of aortocoronary bypass graft (principal); E11.9 Type 2 diabetes mellitus without complications; I25.10 Atherosclerotic heart disease of native coronary artery without angina pectoris; I10 Essential (primary) hypertension; M54.50 Low back pain, unspecified; G89.29 Other chronic pain

== ENCOUNTER → 2025-06-03 07:31 | Outpatient (BNVA) | payer MEDICARE, SELFPAY | PROVIDERS: PCP Physician Assistant; Visit Provider Physician Assistant | DX: E11.9 Type 2 diabetes mellitus without complications (principal); I25.10 Atherosclerotic heart disease of native coronary artery without angina pectoris; I10 Essential (primary) hypertension; M54.50 Low back pain, unspecified; G89.29 Other chronic pain; Z95.1 Presence of aortocoronary bypass graft | CPT/HCPCS: 96127; 99212 ==

== ENCOUNTER → 2025-06-10 23:59 | Outpatient (BNV) | payer MEDICARE, SELFPAY | PROVIDERS: PCP Physician Assistant; Visit Provider Physician Assistant | DX: I12.9 Hypertensive chronic kidney disease with stage 1 through stage 4 chronic kidney disease, or unspecified chronic kidney disease (principal); N18.30 Chronic kidney disease, stage 3 unspecified; I48.0 Paroxysmal atrial fibrillation | CPT/HCPCS: G0180 ==

== ENCOUNTER 2025-07-08 09:30 | Outpatient (AMB) | payer MEDICARE, SELFPAY ==
[2025-07-08 09:34] VITALS: BP 122/72; PULSE 84; TEMP 36.3; O2SAT 97; BMI 26.6
--- NOTE | 2025-07-08 09:34 | MHC.PC.OV ---
Vital Signs 07/08/25 09:34 Height 5 ft 11 in Weight 190 lb 8 oz BMI 26.6 BP 122/72 Blood Pressure Location Lt brachial Position Sitting Pulse 84 Pulse Source Pulse Oximeter Temp 97.3 F Temp Source Temporal Artery Scan Pulse Oximetry (%) 97 Oxygen Delivery Method Room Air Intake Visit Reasons: DM/Med review - see comments Accompanied by: Spouse Allergies lisinopril Adverse Reaction (Mild, Verified 07/08/25 09:51) Cough Medication List - Last Reconciled 07/08/25 by Tom Collins PA-C apixaban (Eliquis) 5 mg PO BID aspirin 81 mg PO DAILY baclofen 10 mg PO DAILY PRN 14 days blood-glucose sensor (DestiStyle Xander 2 Plus Sensor device) As directed dapagliflozin propanediol (Farxiga) 10 mg PO DAILY ferrous sulfate (FeroSul) 325 mg PO BID 30 days flash glucose scanning reader (FreeStyle Xander 2 [place]) As directed flash glucose sensor (FreeStyle Xander 2 Sensor kit) As directed folic acid 1 mg PO DAILY insulin glargine (Lantus Solostar U-100 Insulin) 44 units (0.44 mL) subcut QAM 30 days levothyroxine 75 mcg PO QAM lidocaine 5% 1 patch topical DAILY 30 days meclizine 25 mg PO BID PRN 15 days metformin ER (Glucophage XR) 500 mg PO DAILY 90 days miscellaneous medical supply 1 ea miscellaneous DAILY 99 days multivitamin 1 tab PO DAILY pen needle, diabetic As directed quetiapine (Seroquel) 12.5 mg PO DAILY rosuvastatin (Crestor) 20 mg PO DAILY 90 days Tobacco use date assessed: 07/08/25 Fall risk assessment: No Falls in past year Last assessed Fall Risk: 07/08/25 Dental Screening Dental Screen Date: 06/03/25 Did you have a dental visit in the last 12 months?: Yes Did you have a dental problem in the last 6 months where you did not have access to dental care?: No Was dental information given to patient?: Patient has dentist HPI DM/Med review - see comments HPI Details Rich is a 79 y/o M here today for a follow-up visit. ? Pmhx significant for DMII, HTN, HLD, hypothyroid, CAD,( status post coronary artery bypass April of 2025) h/o DVT, nephrolithiasis.' ? .. ? HTN:? Blood pressure today in office acceptable. Blood pressures were reported as stable at home. Will continue his current dose of antihypertensives ? . ? CAD :Patient underwent a catheterization which showed severe mid LAD stenosis and severe ostial diagonal stenosis in likely severe ostial OM stenosis. Recommendations remain for coronary artery bypass which was done with Dr. Hernandez at [facility]. The patient underwent triple bypass surgery on April 30 2025, performed by Dr. Parker Hernandez. Post-surgery. He continues now in cardiac rehab and doing well ? .. ? Type 2 diabetes: Patient is now off of oral antihyperglycemics. Most recent fasting blood sugar 106. He has been restarted on metformin and Farxiga without any notable side effects He is now more consistent with his long-acting insulin daily at 44 units. Trying to set patient up with a continues glucose monitor to better understand patient's blood sugars. Laboratory Tests 11/13/23 04/13/24 05/18/25 09:11 11:13 15:25 Hgb A1c (Clinic) 8.4 H 8.1 H 7.4 H PFSH Medical History CVA (cerebral vascular accident) Vertigo H/O deep venous thrombosis Surgical History History of open heart surgery History of cervical spinal surgery Family History Father No problems noted. Mother Heart disease Social History Housing: House Alcohol intake: never Patient Tobacco Use Status: Never used Tobacco e-Cigarette/Vaping Use: Never Used Second Hand Smoke Exposure: No service: No Current occupational status: employed Current occupational exposures/hazards: No Cognitive needs: Yes (walker, wheelchair, cane) Hearing needs: No Vision needs: Yes (glasses) Questionnaire PHQ-9 Over the last 2 weeks, how often have you been bothered by any of the following problems? 1. Little interest or pleasure in doing things: not at all 2. Feeling down, depressed, or hopeless: not at all 3. Trouble falling or staying asleep, or sleeping too much: not at all 4. Feeling tired or having little energy: not at all 5. Poor appetite or overeating: not at all 6. Feeling bad about yourself - or that you are a failure or have let yourself or your family down: not at all 7. Trouble concentrating on things, such as reading the newspaper or watching television: not at all 8. Moving or speaking so slowly that other people could have noticed. Or the opposite - being so fidgety or restless that you have been moving around a lot more than usual: not at all 9. Thoughts that you would be better off or of hurting yourself in some way: not at all Total score: 0 Depression Screening Interpretation: Negative Depression Screening Done: Yes Source: Developed by Drs. Martín Iglesias, Court Page, Valeriano Amado and colleagues, with an educational niesha from [employer]. Thrive Questionnaire Date Thrive assessed: 05/18/25 I am a: Patient What is your living situation today?: I have a steady place to live Within the past 12 months, did the food you bought not last and you didn't have the money to get more?: Never true Within the past 12 months, did you worry whether your food would run out before you got money to buy more?: Never true Do you have trouble paying for medicines?: No Do you have trouble getting transportation to medical appointments?: No Do you have trouble paying your heating and electricity bill?: No Do you have trouble taking care of your child, family member or friend?: No Do you have trouble with day-to-day activities such as bathing, preparing meals, shopping, managing finances, etc.?: No Are you currently unemployed and looking for a job?: No Are you interested in more education?: No Please select the resources that you would like help with: None Currently or been in a relationship where the following occur: No concerns reported THRIVE Score: 0 AUDIT C Alcohol Use Questionnaire (AUDIT-C) 1. How often do you have a drink containing alcohol?: Never 3. How often do you have six or more drinks on one occasion?: Never Total Score: 0 ABDOUL-7 AMB Questionnaire ABDOUL-7 Date ABDOUL - 7 assessed: 05/18/25 Feeling nervous, anxious, or on edge: 0 = Not at all Not being able to stop or control worryin = Not at all Worrying too much about different things: 0 = Not at all Trouble relaxin = Not at all Being so restless that it is hard to sit still: 0 = Not at all Becoming easily annoyed or irritable: 0 = Not at all Feeling afraid as if something awful might happen: 0 = Not at all Total ABDOUL-7 score (0-4 normal; 5-9 mild; 10-14 moderate; 15-21 severe): 0 Source: Developed by Drs. Martín Iglesias, Court Page, Valeriano Amado and colleagues, with an educational niesha from [employer]. Review of Systems Const Denies headache(s) Eyes Denies loss of vision ENT Denies vertigo, Denies dizziness, Denies headache(s) and Denies sore throat Card Denies chest pain, Denies leg edema and Denies lightheadedness Resp Denies cough, Denies hemoptysis and Denies wheezing GI Denies abdominal pain, Denies melena, Denies constipation, Denies diarrhea and Denies vomiting Denies dysuria, Denies urinary frequency and Denies urinary urgency Musc Denies arthralgias, Denies joint swelling, Denies numbness and Denies tingling Neuro Denies Abnormal speech present, Denies behavioral changes, Denies vertigo, Denies dizziness, Denies headache(s), Denies loss of vision, Denies memory loss, Denies numbness and Denies tingling Psych Denies anxiety, Denies behavioral changes, Denies depression, Denies memory loss and Denies panic attacks Mahesh/Lymph Denies easy bleeding and Denies easy bruising Aller/Immun Denies wheezing Physical exam (Primary Care) Vital Signs: Last Vital Signs Temp 97.3 F 07/08/25 09:34 Pulse 84 07/08/25 09:34 BP 122/72 07/08/25 09:34 Pulse Ox 97 07/08/25 09:34 Oxygen Delivery Method Room Air 07/08/25 09:34 BMI result Body Mass Index 26.6 Tobacco/Smoking Status: Tobacco use Status Tobacco use date assessed 07/08/25 07/08/25 09:46 Patient Tobacco Use Status Never used Tobacco 07/08/25 09:46 e-Cigarette/Vaping Use Never Used 07/08/25 09:46 PHQ-9: PHQ-9 Score PHQ-9: Total score 0 07/08/25 09:46 Depression Screening Interpretation: Negative Thrive Assessment: Date of Thrive Assessment Date Thrive assessed 05/18/25 07/08/25 09:46 Currently or been in a relationship where the following occur: No concerns reported Const General: healthy appearing, no acute distress, alert and awake Nutritional Appearance: well nourished Orientation/consciousness: oriented to person, oriented to place and oriented to time HENMT Ears: TM's normal bilaterally General nose exam: Normal nasal mucous membranes and turbinates present Eyes Conjunctivae: conjunctivae normal Sclerae: sclerae normal Pupils: Equal, round and reactive pupils present Neck Neck: Yes no lymphadenopathy and Yes no JVD Thyroid: Thyroid normal Carotids: no bruits Resp Effort & Inspection: normal respiratory effort and not tachypneic Auscultation: no crackles, no rales, no rhonchi and no wheezes Cardio Rate: regular rate Rhythm: regular rhythm Heart sounds: no murmurs and normal S1 and S2 GI Palpation (GI): Soft to palpation, nontender, no hepatomegaly and no splenomegaly Auscultation: normal bowel sounds Skin General skin exam: no rashes or lesions noted and dry skin Neuro General: oriented to person, oriented to place and oriented to time Cranial nerves: Yes Equal, round and reactive pupils present Speech: No Abnormal speech present Gait exam (Neuro): Normal gait present Motor exam (neuro): no tremor noted Extrem Right upper extremity: full ROM Left upper extremity: full ROM Right lower extremity: full ROM; no edema Left lower extremity: full ROM; no edema Psych Mental Status: mental status grossly normal Speech and movement: Normal speech and movement present Affect: normal affect Attitude: cooperative Thought process: Normal thought process present Coding Level of Care Code Est Pt Level 4 (78013) Diagnoses S/P CABG x 3 Z95.1 Type 2 diabetes mellitus without complication, without long-term current use of insulin E11.9 Diabetes mellitus terminal makeup operator insulin use: without halfway use Diabetes mellitus complication status: without complication Coronary artery disease involving [place] coronary artery of [place] heart without angina pectoris I25.10 Coronary Disease-Associated Artery/Lesion type: [place] artery [place] vs. transplanted heart: [place] heart Associated angina: without angina Essential hypertension I10 Hypertension type: essential hypertension Assessment & Plan Assessment & Plan (1) S/P CABG x 3: Code(s): Z95.1 - Presence of aortocoronary bypass graft Category: Surgical Plan: The patient underwent a triple bypass surgery on April 30 and has been recovering well post-surgery. Currently in cardiac rehab and doing well, blood pressures has been stable 120s to 130 systolic. His exercise capacity seems to be doing better as well they report going to the [employer] and was able to walk 2 miles. (2) DMII (diabetes mellitus, type 2): Code(s): E11.9 - Type 2 diabetes mellitus without complications Category: Medical Qualifiers: Diabetes mellitus terminal makeup operator insulin use: without terminal makeup operator use Diabetes mellitus complication status: without complication Qualified Code(s): E11.9 - Type 2 diabetes mellitus without complications Plan: Patient has been managing his diabetes quite well, he has been consistent with daily use of his long-acting insulin at 44 units. He has restarted metformin and Farxiga which has been helping bandage his blood sugars. A1c to be below 7.0 (3) CAD (coronary artery disease): Comment: Had coronary catheterization showing 80% blockage of the LAD no intervention at the time Code(s): I25.10 - Atherosclerotic heart disease of [place] coronary artery without angina pectoris Category: Medical Qualifiers: Coronary Disease-Associated Artery/Lesion type: [place] artery [place] vs. transplanted heart: [place] heart Associated angina: without angina Qualified Code(s): I25.10 - Atherosclerotic heart disease of [place] coronary artery without angina pectoris Plan: Patient continues to follow cardiology in [place]. Status post coronary artery bypass 04/2025 Most recent lipid panel showing good control of his total cholesterol and LDL. He will continue on Crestor and aspirin for now. Optimal LDL to be below 70. (4) HTN (hypertension): Code(s): I10 - Essential (primary) hypertension Category: Medical Qualifiers: Hypertension type: essential hypertension Qualified Code(s): I10 - Essential (primary) hypertension Plan: Patient's blood pressure today in office acceptable. He is now off of antihypertensive medication. Will consider additional amlodipine if blood pressures above 140/90 Medications: New insulin degludec 44 units (0.44 mL) subcut DAILY 15 mL 3RF 30 days E11.9 - Type 2 diabetes mellitus without complications Changed From quetiapine (Seroquel) 25 mg PO DAILY 90 days 90 tabs 1RF G47.00 - Insomnia, unspecified To quetiapine (Seroquel) 12.5 mg PO DAILY G47.00 - Insomnia, unspecified From baclofen 10 mg PO DAILY 14 days PRN 14 tabs 1RF muscle spasm G89.29 - Other chronic pain, M54.50 - Low back pain, unspecified To baclofen 10 mg PO DAILY 90 tabs 1RF muscle spasm 90 days G89.29 - Other chronic pain, M54.50 - Low back pain, unspecified Discontinued folic acid Discontinued Reason: Doctor's Order 1 mg PO DAILY 90 tabs 1RF insulin glargine (Lantus Solostar U-100 Insulin) Discontinued Reason: Doctor's Order 44 units (0.44 mL) subcut QAM 30 days 15 mL 6RF E11.9 - Type 2 diabetes mellitus without complications On Hold ferrous sulfate (FeroSul) Hold Comment: Dose Change 325 mg PO BID 60 tabs 3RF 30 days E61.1 - Iron deficiency
== END 2025-07-08 10:08 | disposition home or self-care (01) ==
LOC: HO.HMCH 09:31
PROVIDERS: PCP Physician Assistant; Visit Provider Physician Assistant
DX: Z95.1 Presence of aortocoronary bypass graft (principal); E11.9 Type 2 diabetes mellitus without complications; I25.10 Atherosclerotic heart disease of native coronary artery without angina pectoris; I10 Essential (primary) hypertension

== ENCOUNTER → 2025-07-08 09:30 | Outpatient (BNVA) | payer MEDICARE, SELFPAY | PROVIDERS: PCP Physician Assistant; Visit Provider Physician Assistant | DX: Z95.1 Presence of aortocoronary bypass graft (principal); E11.9 Type 2 diabetes mellitus without complications; I25.10 Atherosclerotic heart disease of native coronary artery without angina pectoris; I10 Essential (primary) hypertension | CPT/HCPCS: 99212 ==

== ENCOUNTER 2025-08-30 08:25 | Outpatient (REF) | payer MEDICARE, SELFPAY ==
--- NOTE | ~2025-08-30 | XR_ITS ---
EXAMINATION: XR LUMBOSACRAL SPINE CLINICAL INFORMATION: M54.50 - Low back pain, unspecified COMPARISON: None available. TECHNIQUE: AP oblique and lateral views FINDINGS: Multilevel marginal osteophyte formation and syndesmophyte formation and endplate sclerosis and decreased intervertebral disc height pronounced at L4-5. Superior endplate compression deformity representing 30-40% volume loss without retropulsion at L1. No gross malalignment. No acute cortical disruption. Facet joint hypertrophy at L4-5 and L5-S1. No lytic or blastic lesions. Vascular calcifications, aorta. Vascular clips right upper quadrant abdomen. Degenerative changes, mild to moderate, coxofemoral joints not fully included in the [id number]. XR/XR lumbar spine 4V min IMPRESSION: Likely old and osteoporotic superior endplate compression deformity at L1. Multilevel thoracolumbar spondylosis pronounced at L4-5. Atherosclerosis disease, aorta. Electronically signed by: Jeffery Saenz MD 08/30/2025 09:11 AM TAL
== END 2025-08-30 08:26 | disposition home or self-care (01) ==
LOC: HO.HMGCX 08:25
PROVIDERS: PCP Physician Assistant; Visit Provider Physician Assistant
DX: G89.29 Other chronic pain (principal); M54.50 Low back pain, unspecified
CPT/HCPCS: 72110

== ENCOUNTER → 2025-08-30 08:36 | Outpatient (BNV) | payer MEDICARE, SELFPAY | PROVIDERS: PCP Physician Assistant; Visit Provider Radiology Diagnostic Radiology | DX: M47.815 Spondylosis without myelopathy or radiculopathy, thoracolumbar region (principal); I70.0 Atherosclerosis of aorta | CPT/HCPCS: 72110 ==

== ENCOUNTER 2025-09-17 08:29 | Outpatient (AMB) | payer MEDICARE, SELFPAY ==
--- NOTE | 2025-09-17 08:32 | A.OFFPC_ITS ---
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 Past medical history notable for open-heart surgery and renal calculi. He was admitted at [facility] on 08/22/25 for evaluation of lower back pain and urinary retention. CT abdomen/pelvis showed a non-obstructing right renal stone measuring 3 mm. He was discharged home with an indwelling Joel catheter and instructed to follow with Urology. He followed up with [facility] on 08/31/25, where the catheter was removed. Today, he denies urinary symptoms, including dysuria, urgency, frequency, hematuria, flank pain, or retention. He is currently taking Tamsulosin 0.4 mg daily. Primary concern today is persistent severe lower back pain. He reports: Pain remains severe despite conservative therapies (acetaminophen, lidocaine patches, heat/ice). Oxycodone provides minimal relief, helps him ?a little,? but he?s still struggl ing to sleep due to the pain. Declines steroid injections, stating strong dislike of needles. He has an upcoming appointment with [facility] on Saturday. No bowel/bladder incontinence, saddle anesthesia, or new neurologic symptoms reported. [facility] Medical History (Updated 09/17/25 @ 08:50 by Galina Mulligan NP) Urinary retention CVA (cerebral vascular accident) Vertigo H/O deep venous thrombosis Surgical History History of open heart surgery History of cervical spinal surgery Family History Father No problems noted. Mother Heart disease Social History Housing: House Alcohol intake: never Patient Tobacco Use Status: Never used Tobacco e-Cigarette/Vaping Use: Never Used Second Hand Smoke Exposure: No service: No Current occupational status: retired Current occupational exposures/hazards: No Cognitive needs: Yes (walker, wheelchair, cane) Hearing needs: No Vision needs: Yes (glasses) Questionnaire Thrive Questionnaire Date Thrive assessed: 05/18/25 I am a: Patient What is your living situation today?: I have a steady place to live Within the past 12 months, did the food you bought not last and you didn't have the money to get more?: Never true Within the past 12 months, did you worry whether your food would run out before you got money to buy more?: Never true Do you have trouble paying for medicines?: No Do you have trouble getting transportation to medical appointments?: No Do you have trouble paying your heating and electricity bill?: No Do you have trouble taking care of your child, family member or friend?: No Do you have trouble with day-to-day activities such as bathing, preparing meals, shopping, managing finances, etc.?: No Are you currently unemployed and looking for a job?: No Are you interested in more education?: No Please select the resources that you would like help with: None Currently or been in a relationship where the following occur: No concerns reported THRIVE Score: 0 ABDOUL-7 AMB Questionnaire ABDOUL-7 Date ABDOUL - 7 assessed: 05/18/25 Source: Developed by Drs. Martín Iglesias, Court Page, Valeriano Amado and colleagues, with an educational niesha from [employer]. Review of Systems Const All systems reviewed & are unremarkable except as noted in HPI and below Physical exam (Primary Care) Vital Signs: Last Vital Signs Temp 97.3 F 09/17/25 08:33 Pulse 94 09/17/25 08:33 BP 120/78 09/17/25 08:33 Pulse Ox 100 09/17/25 08:33 Oxygen Delivery Method Room Air 09/17/25 08:33 BMI result Body Mass Index 26.7 Tobacco/Smoking Status: Tobacco use Status Tobacco use date assessed 09/17/25 09/17/25 08:39 Patient Tobacco Use Status Never used Tobacco 09/17/25 08:39 e-Cigarette/Vaping Use Never Used 09/17/25 08:39 Thrive Assessment: Date of Thrive Assessment Date Thrive assessed 05/18/25 09/17/25 08:39 Currently or been in a relationship where the following occur: No concerns reported Const General: no acute distress Nutritional Appearance: overweight Orientation/consciousness: patient oriented x3 Back/Spine/Pelvis Back: back tenderness Neuro General: patient oriented x3, gait normal and moves all extremities Psych Speech and movement: Normal speech and movement present Coding Level of Care Code Est Pt Level 4 (59780) Diagnoses Urinary retention R33.9 Time Spent (min) 25 Assessment & Plan Assessment & Plan (1) Urinary retention: Code(s): R33.9 - Retention of urine, unspecified Category: Medical Plan: Chronic/dbcui-hy-lwbawep lower back pain ? Persistent and severe; minimally responsive to conservative measures. Pending further evaluation with [facility]. History of urinary retention secondary to renal calculi ? Currently resolved; asymptomatic after catheter removal by Urology. Continue Oxycodone as previously prescribed for breakthrough pain. Reinforce max dosing and safe use precautions. Continue acetaminophen PRN, though patient reports limited benefit. Discussed alternative modalities (TENS, gentle stretching, PT). Keep scheduled [facility] appointment Saturday for definitive evaluation and long-term management options. Seek urgent care/ED for red flag symptoms (new bowel/bladder incontinence, saddle anesthesia, progressive weakness, inability to urinate).
[2025-09-17 08:33] VITALS: BP 120/78; PULSE 94; TEMP 36.3; O2SAT 100; BMI 26.7
== END 2025-09-17 09:09 | disposition home or self-care (01) ==
LOC: HO.HMCH 08:30
PROVIDERS: PCP Physician Assistant; Visit Provider Nurse Practitioner Family
DX: R33.9 Retention of urine, unspecified (principal)

== ENCOUNTER → 2025-09-17 08:29 | Outpatient (BNVA) | payer MEDICARE, SELFPAY | PROVIDERS: PCP Physician Assistant; Visit Provider Nurse Practitioner Family | DX: R33.9 Retention of urine, unspecified (principal) | CPT/HCPCS: 99212 ==